=== PATIENT | female | born 1930 | race Caucasian/White ===

== ENCOUNTER 2019-03-04 12:24 | Inpatient (IN) | payer OTHER, MEDICAID ==
[~2019-03-04] VITALS: Ht 154.9 cm; Wt 88.9 kg
--- NOTE | 2019-03-04 12:24 | NUR ---
PATIENT BIBA TO BED 10 AT THIS TIME.
--- NOTE | 2019-03-04 12:25 | NUR ---
DR. BURR AT BEDSIDE EVALUATING
--- NOTE | 2019-03-04 12:29 | NUR ---
PT BIBA TO ED FOR FURTHER EVALUATION OF ABNORMAL LABS, WBC 34.83,NA 126, K 6.1. PT AAO X3 BASELINE, GCS 15. HX.DM, HTN, GERD.
[2019-03-04 12:34] VITALS: BP 84/45
[2019-03-04] MEDS ORDERED: NACL 0.9% 500 ML IV ONE ×2 (12:55→22:05)
--- NOTE | 2019-03-04 12:55 | NUR ---
# 16 FR Holloway catheter inserted utilizing sterile technique. Immediate return of 50ml cloudy urine noted. Bedside drainage bag placed below level of bladder. Urine sample collected and sent to lab. Pt tolerated procedure well.
--- NOTE | 2019-03-04 13:00 | NUR ---
Pt O2 saturation levels fluctuating 93-94% on room air. Oxygen applied at 2 L per minute via NC--- 02 saturation 98% by pulse oximetry at this time.
--- NOTE | 2019-03-04 13:02 | NUR ---
x ray at bedside
--- NOTE | 2019-03-04 13:18 | NUR ---
Pt's dentures and sunglasses sent with family members.
[2019-03-04 13:37] LABS: PROTHROMBIN TIME 9.7 secs (10.8-13.4)
[2019-03-04 13:38] LABS: ALBUMIN 1.9 g/dL (3.4-5.0); ANION GAP 17.8 (8-16); ASPARTATE AMINOTRANSFERASE 97 U/L (15-37); CHLORIDE 95 mmol/L (98-107); GLUCOSE 278 mg/dL (74-106); HEMATOCRIT 25.6 % (36-48); HEMOGLOBIN 8.4 g/dL (12.0-16.0); MEAN CORPUSCULAR HEMOGLOBIN 33 pg (27-31); MEAN CORPUSCULAR HGB CONC 33 g/dL (33-37); MEAN CORPUSCULAR VOLUME 100.6 fL (80-94); PLATELET COUNT (AUTO) 313 K/uL (140-450); POTASSIUM 4.8 mmol/L (3.5-5.1); RED BLOOD CELL COUNT(AUTO) 2.54 MIL/uL (4.20-5.40); RED CELL DISTRIBUTION WIDTH 16.2 % (11.6-13.7); SODIUM SERUM 128 mmol/L (136-145); TOTAL BILIRUBIN 0.4 mg/dL (0.0-1.0); WHITE BLOOD COUNT (AUTO) 23.4 K/uL (4.8-10.8)
[2019-03-04 13:43] LABS: CREATININE 4.5 mg/dL (0.6-1.3); UREA NITROGEN, BLOOD 112 mg/dL (7-18)
[2019-03-04] MEDS ORDERED: NACL 0.9% 250 ML IV ONE ×2 (14:00→17:15)
--- NOTE | 2019-03-04 14:02 | NUR ---
B/P 88/31; NEW ORDER FOR NS [address] BURR.
[2019-03-04 14:03] LABS: APPEARANCE,URINE CLOUDY (CLEAR); BILIRUBIN,URINE NEGATIVE (NEGATIVE); BLOOD, URINE 2+ (NEGATIVE); COLOR,URINE YELLOW (YELLOW); LEUKOCYTE ESTERASE ,URINE 3+ (NEGATIVE); NITRITE, URINE NEGATIVE (NEGATIVE); UGLUCOSE NEGATIVE (NEGATIVE)
[2019-03-04] MEDS ORDERED: LEVOFLOXACIN 500 MG/D5W PREMIX 100 ML IV ONE (14:10)
--- NOTE | 2019-03-04 14:17 | NUR ---
blood pressure 91/40; after NS 25O bolus. New orders pending.
[2019-03-04] MEDS ORDERED: NACL 0.9% 1,000 ML IV ONE (14:20)
[2019-03-04 14:35] LABS: BASOPHILS % (MANUAL) 0 % (0-2); EOSINOPHILS % (MANUAL) 1 % (0-4); LYMPHOCYTES % (MANUAL) 2 % (20-46); MONOCYTES % (MANUAL) 7 % (5-12)
[2019-03-04 14:39] LABS: RBC,URINE 11-20 (MOD) /HPF (0-5); WBC,URINE TOO MANY TO COUNT /HPF (0-5)
[2019-03-04] MEDS: NACL 0.9% 1,000 ML IV SCH ×2 (14:41→23:03)
[2019-03-04] MEDS ORDERED: ONDANSETRON 4 MG/2 ML VIAL IM/IVP PRN (14:45)
[2019-03-04] MEDS ORDERED: MORPHINE SULFATE 2 MG/ML SYR IVP PRN (14:45)
[2019-03-04] MEDS ORDERED: LORazepam 2 MG/ML VIAL IM/IVP PRN (14:45)
[2019-03-04] MEDS ORDERED: DEXTROSE 50% 50 ML SYR IVP PRN (14:45)
[2019-03-04] MEDS ORDERED: DOCUSATE SODIUM 100 MG GELCAP PO PRN (14:45)
[2019-03-04] MEDS ORDERED: ACETAMINOPHEN 325 MG TAB PO PRN (14:45)
[2019-03-04 15:26] LABS: MAGNESIUM 2.4 mg/dL (1.8-2.4); PHOSPHORUS 5.5 mg/dL (2.5-4.9); THYROID STIMULATING HORMONE 0.83 uIU/mL (0.34-3.74)
[2019-03-04] MEDS ORDERED: MEDICATION REC. PHARMACY CONS. 1 EA MISC MC PRN (15:50)
--- NOTE | 2019-03-04 16:18 | NUR ---
Patient will be admitted to care of Dr. Lees. Will be admitted to telemetry floor. Will go to room 127B . Belongings list completed.
[2019-03-04] MEDS: BLOOD GLUCOSE MONITORING 1 DEV DEV FS SCH ×2 (16:30→20:47)
--- NOTE | 2019-03-04 16:35 | NUR ---
IVF infusing as ordered by Dr. Ruffin. Pt continues on 2L of oxygen via NC; O2 sat 96%. Alert and oriented to name, place and event. Denies any pain at this time. Vital signs updated.
--- NOTE | 2019-03-04 17:04 | NUR ---
DR BURR AT BEDSIDE SPEAKING WITH FAMILY.
--- NOTE | 2019-03-04 17:14 | NUR ---
RECTAL TEMP 100.7; DR BURR INFORMED.
[2019-03-04] MEDS ORDERED: FERR325E14 PO (17:19)
[2019-03-04] MEDS ORDERED: TRAM50TA1 PO (17:19)
[2019-03-04] MEDS ORDERED: VITA1TAB44 PO (17:19)
[2019-03-04] MEDS ORDERED: LID5T TP (17:19)
[2019-03-04] MEDS ORDERED: CARV3.12 PO (17:19)
[2019-03-04] MEDS ORDERED: AMLO-272 PO (17:19)
[2019-03-04] MEDS ORDERED: ACET-2619 PO (17:19)
[2019-03-04] MEDS ORDERED: BISA-213 RC (17:19)
[2019-03-04] MEDS ORDERED: DOCU-299 PO (17:19)
[2019-03-04] MEDS ORDERED: ASCO-5 PO (17:19)
[2019-03-04] MEDS ORDERED: HYDR-5122 PO (17:19)
[2019-03-04] MEDS ORDERED: FLEPED RC (17:19)
[2019-03-04] MEDS ORDERED: ATI.5 PO (17:19)
[2019-03-04] MEDS ORDERED: GABA300C PO (17:19)
[2019-03-04] MEDS ORDERED: FAMO-90 PO (17:19)
[2019-03-04] MEDS ORDERED: BENA20TA PO (17:19)
[2019-03-04] MEDS ORDERED: MAGN400S60 PO (17:19)
[2019-03-04] MEDS ORDERED: MAGNESIUM HYDROXIDE 2400 MG/30 ML UDC PO PRN (17:25)
[2019-03-04] MEDS ORDERED: SODIUM PHOSPHATE PEDIATRIC 67.5 ML ENEM RC PRN (17:25)
--- NOTE | 2019-03-04 18:10 | NUR ---
RECEIVED BED SIDE REPORT FROM MED ASST RN. PT LEGALLY BLIND BUT HEARS WELL. IV 18G A AC RUNNING NS AT 126ML/HR. RECEIVED ORDER FROM AND SAID TO GIVE NS 250ML BOLUS WIDE OPEN.MANUFACTURING LABORER SAID LEVAQUIN WAS GIVEN IN THE ER ALONG WITH TYLENOL D/T 100.7 TEMP. HAS COMPRESSION FRACTURES, GAVIN INSERTED TODAY IN THE ER DRAINING LIGHT GREEN 150CC URINE. SKIN INTACT. BP RUNNING LOW, LAST ONE FROM ER WAS 82/37. LAST BP I TOOK WAS 94/47. CONTINUED NS 1000ML AT 100ML/HR PER MD ORDER. GAVE CALCIUM ACETATE CRUSHED THROUGH APPLESAUCE. FAMILY AT BEDSIDE. PT IS DNR AND FAMILY MADE AWARE.
--- NOTE | 2019-03-04 18:11 | NUR ---
Patient will be admitted to care of Dr. Lees. Admited to telemetry floor. Will go to room 127B. Belongings list completed. Report to JAYME Perry.
[2019-03-04] MEDS ORDERED: SODIUM PHOSPHATE 118 ML ENEM RC PRN (18:25)
[2019-03-04] MEDS: INSULIN LISPRO SLIDING SCALE 100 UNITS/ML VIAL SUBQ PRN ×2 (18:40→20:55)
[2019-03-04] MEDS ORDERED: CALCIUM ACETATE 667 MG TAB PO SCH (18:45)
[2019-03-04 19:30] VITALS: BP 97/68
--- NOTE | 2019-03-04 19:30 | NUR ---
RECEIVED BEDSIDE REPORT FROM DAY SHIFT NURSE. PATIENT IS SLEEPING RESPIRATION EVEN UNLABORED ON 02 2L NC. NO DISTRESS NOTED. PATIENT IS LEGALLY BLIND. SKIN IS WARM AND DRY. IV PATENT AND INTACT. GAVIN CATHETER NOTED DRAINING YELLOW URINE. FAMILY AT BEDSIDE. MRSA SCREEN DONE. PLAN OF CARE WAS DISCUSSED. ORIENT PATIENT TO ROOM, STAFF, AND CALL LIGHT. ALL SAFETY MEASURES IN PLACE. BED IS IN LOW POSITION. BED ALARM ON. CALL LIGHT WITHIN REACH. WILL CONTINUE TO MONITOR.
--- NOTE | 2019-03-04 19:45 | NUR ---
ENDORSED PT TO MEDICAID SERVICE COORDINATOR RN. PT IN STABLE CONDITION
[2019-03-04] MEDS ORDERED: LIDOCAINE 5% 1 EA PATCH TP SCH (21:00)
--- NOTE | 2019-03-04 21:00 | NUR ---
CHECKED BLOOD GLUCOSE. PT BLOOD GLUCOSE 230. PRN INSULIN PER SLIDING SCALE ORDER. WILL CONTINUE TO MONITOR
--- NOTE | 2019-03-04 22:00 | NUR ---
PATIENT IV INFILTRATED STARTED A NEW ONE TO RIGHT HAND 24G. NO ACTIVE BLEEDING SEEN. WILL CONTINUE TO MONITOR
--- NOTE | 2019-03-04 22:15 | NUR ---
CHECKED PATIENT BP. PT BP 75/32 RESIDENT AWARE OF THE SITUATION AND ORDER 500ML BOLUS. WILL CONTINUE TO MONITOR
--- NOTE | 2019-03-04 23:05 | NUR ---
RECHECKED PATIENT BP AFTER BOLUS. PT BP 86/33 HR 60 NO DISTRESS NOTED. FAMILY AT BEDSIDE. WILL CONTINUE TO MONITOR.
[2019-03-05] VITALS: BP 93/37
--- NOTE | 2019-03-05 | NUR ---
VITALS WERE TAKEN. PATIENT IS IN STABLE CONDITION. NO DISTRESS NOTED. FAMILY AT BEDSIDE. WILL CONTINUE TO MONITOR.
--- NOTE | 2019-03-05 00:54 | NUR ---
PAIN IS IN PAIN. FLACC 0. ADMINISTERED PRN PAIN MED PER ORDER. WILL CONTINUE TO MONITOR.
--- NOTE | 2019-03-05 02:54 | NUR ---
PATIENT VERBALIZED HEADACHE PAIN 04/08. ADMINISTERED 1MG OF MORPHINE ONCE PER DR. ALONZO (RESIDENT) ORDER. PATIENT BP 122/90 HR 80 RR 20. WILL CONTINUE TO MONITOR.
[2019-03-05] MEDS ORDERED: MORPHINE SULFATE 2 MG/ML SYR IVP SCH (03:00)
[2019-03-05 04:00] VITALS: BP 104/46
--- NOTE | 2019-03-05 04:00 | NUR ---
VITALS WERE TAKEN. PATIENT COMPLAINED OF NECK PAIN 7/. PRN PAIN MED ADMINISTER PER ORDER. WILL CONTINUE TO MONITOR.
[2019-03-05] MEDS: MORPHINE SULFATE 2 MG/ML SYR IVP PRN (04:29)
[2019-03-05] MEDS: BLOOD GLUCOSE MONITORING 1 DEV DEV FS SCH ×4 (06:06→20:29)
[2019-03-05 06:08] LABS: CHOL/HDL RATIO 6.1 (1-4.5); PHOSPHORUS 4.3 mg/dL (2.5-4.9)
[2019-03-05] MEDS: INSULIN LISPRO SLIDING SCALE 100 UNITS/ML VIAL SUBQ PRN ×4 (06:08→20:36)
[2019-03-05 06:23] LABS: ANION GAP 19.8 (8-16); CARBON DIOXIDE 15.3 mmol/L (21-32); CHLORIDE 99 mmol/L (98-107); CREATININE 2.9 mg/dL (0.6-1.3); GLUCOSE 233 mg/dL (74-106); POTASSIUM 5.1 mmol/L (3.5-5.1); SODIUM SERUM 129 mmol/L (136-145)
[2019-03-05 06:27] LABS: UREA NITROGEN, BLOOD 96 mg/dL (7-18)
[2019-03-05 06:44] LABS: HEMATOCRIT 22.9 % (36-48); HEMOGLOBIN 7.5 g/dL (12.0-16.0); MEAN CORPUSCULAR HEMOGLOBIN 33 pg (27-31); MEAN CORPUSCULAR HGB CONC 33 g/dL (33-37); MEAN CORPUSCULAR VOLUME 101.4 fL (80-94); PLATELET COUNT (AUTO) 299 K/uL (140-450); RED BLOOD CELL COUNT(AUTO) 2.26 MIL/uL (4.20-5.40); RED CELL DISTRIBUTION WIDTH 16.3 % (11.6-13.7)
--- NOTE | 2019-03-05 07:26 | NUR ---
REPORT RECEIVED FROM FILTERING MACHINE TENDER NURSE, PT RESTING QUIETLY IN NO ACUTE DISTRESS, RESP EVEN UNLABORED, SKIN WARM DRY COLOR WNL,POC REVIEWED, DAUGHTER IN LAW AND SON AT BEDSIDE, ALL SAFETY MEASURES IN PLACE, NO IMMEDIATE NEEDS AT THIS TIME.
--- NOTE | 2019-03-05 07:27 | NUR ---
ENDORSED PATIENT TO DAY SHIFT NURSE FOR CONTINUITY OF CARE.
[2019-03-05 08:00] VITALS: BP 108/52
--- NOTE | 2019-03-05 08:01 | NUR ---
PATIENT HAS BEEN SCREENED AND CATEGORIZED HIGH NUTRITION RISK. PATIENT WILL BE SEEN WITHIN 1-2 DAYS OF ADMISSION. 03/05/19-03/06/[address]
[2019-03-05] MEDS: VIT-B COMP/VIT-C/FOLIC ACID 1 TAB PO SCH (08:03)
[2019-03-05] MEDS: FAMOTIDINE 20 MG TAB PO SCH (08:03)
[2019-03-05] MEDS: LORazepam 2 MG/ML VIAL IM/IVP PRN (08:03)
[2019-03-05] MEDS: ASCORBIC ACID 500 MG TAB PO SCH (08:03)
[2019-03-05] MEDS: GABAPENTIN 100 MG CAP PO SCH (08:04)
[2019-03-05] MEDS: FERROUS SULFATE 325 MG TABEC PO SCH (08:04)
[2019-03-05] MEDS: DOCUSATE SODIUM 100 MG GELCAP PO SCH (08:05)
[2019-03-05] MEDS: LIDOCAINE 5% 1 EA PATCH TP SCH (08:21)
--- NOTE | 2019-03-05 08:22 | NUR ---
ATIVAN GIVEN FOR C/O ANXIETY, PT DENIES PAIN, AM MEDS GIVEN 1 PILL TOLERATED, REST CRUSHED AND GIVEN WITH PUDDING, CLARISSA WELL, DAUGHTER IN LAW AT BEDSIDE ASSISTING WITH BREAKFAST, SON ALSO AT BEDSIDE, PT REFUSES LIDOCAIN PATCH.
[2019-03-05 08:25] LABS: LYMPHOCYTES % (MANUAL) 2 % (20-46); MONOCYTES % (MANUAL) 2 % (5-12)
[2019-03-05] MEDS ORDERED: GABAPENTIN 300 MG CAP PO SCH (09:00)
--- NOTE | 2019-03-05 09:00 | NUR ---
S.T. BEDSIDE SWALLOW EVAL COMPLETED Pt presents w/ mild oral dysphagia c/b difficultying procuring and managing oral bolus. Pt c/o xerostomia and attributes oral difficulty to that. No overt s/s aspriation. Pt's family c/o weakness, and requests that food texture be downgraded. Recommend: 1) Downgrade diet texture to mechanical soft ground, thin liquids ok. 2) P.O. meds as tolerated. 3) Advance diet slowly as pt's strength/endurance improves. D/w pt, [id number] at bedside and RN Tia. No further tx indicated at this time. DC to [facility]. TIME [id number]
--- NOTE | 2019-03-05 09:20 | NUR ---
PT NOW SLEEPING QUIETLY, APPEARS COMFORTABLE, DAUGHTER IN LAW AT BEDSIDE.
--- NOTE | 2019-03-05 09:33 | NUR ---
JACOBO FROM [facility] ON THE PHONE, SPOKE WITH DAUGHTER IN LAW TO ARRANGE MEETING.
--- NOTE | 2019-03-05 10:15 | NUR ---
[facility] AND DR TUBBS AT BEDSIDE WITH FAMILY AND PATIENT.
[2019-03-05] MEDS ORDERED: SODIUM FERRIC GLUCONATE 125 MG in NACL 0.9% 100 ML IV SCH (11:00)
--- NOTE | 2019-03-05 11:05 | NUR ---
GAVIN CARE DONE, LINEN AND GOWN CHANGED, BED BATH GIVEN.
[2019-03-05] MEDS: NACL 0.9% 1,000 ML IV SCH ×2 (11:33→21:10)
[2019-03-05 12:00] VITALS: BP 112/68
--- NOTE | 2019-03-05 14:25 | NUR ---
DR GLEASON AT BEDSIDE
--- NOTE | 2019-03-05 15:01 | NUR ---
03/05/19 RD INITIAL ASSESSMENT COMPLETED PLEASE REFER TO NUTRITION ASSESSMENT UNDER CARE ACTIVITY FOR ESTIMATED NUTRITIONAL NEEDS. 1. CONTINUE CCHO 60 GM AND RENAL MECH SOFT DIET TOLERATED 2. CONTINUE GLUCERNA BID 3. ENCOURAGE INCREASING PO INTAKE 4. MECHANICAL SOFT NUTRITION THERAPY EDUCATION WAS PROVIDED TO PATIENT�S FAMILY 5. RD TO FOLLOW-UP 2-3 DAYS, HIGH RISK LINDA MEJIA, RD
[2019-03-05 15:07] LABS: FOLIC ACID > 20.00 ng/mL (>3.0)
--- NOTE | 2019-03-05 15:39 | NUR ---
MULTIPLE ATTEMPTS SINCE THIS MORNING TO TRY AND SEE PATIENT FOR [facility]AD[facility] BUT PT EITHER HAD MD VISITING, SWALLOW MIHAELAAL OR US AT BEDSIDE. IN THE AFTERNOON CHRISTOPHER GRANDDAUGHTER AT BEDSIDE SAID "SHE IS KNOCKED OUT EVEN WHEN YOU COME BACK IT MAY BE HARD TO WAKE HER." CHRISTOPHER GAVE HISTORY PT HAD MECHANICAL FALL AT HOME SUSTAINED LT RIB FRACTURE ABOUT A MONTH AGO, WAS IN [facility] BUT FROM HER KNOWLEDGE HAS BEEN VERY WEAK AND MOSTLY BED BOUND SINCE SNF ADMISSION. PER FAMILY REQUEST Grace AMADOR DEFERRED TO TOMORROW.
[2019-03-05 16:00] VITALS: BP 115/69
--- NOTE | 2019-03-05 16:02 | NUR ---
DR TUBBS AT BEDSIDE TO DISCUSS PLAN OF CARE WITH FAMILY.
[2019-03-05 17:54] LABS: FERRITIN 486 ng/mL (15 - 150); TRANSFERRIN 116 mg/dL (200 - 370)
--- NOTE | 2019-03-05 18:51 | NUR ---
PT RESTING QUIETLY IN BED IN NO ACUTE DISTRESS, FAMILY AROUND BEDSIDE, NO NEEDS AT THIS TIME, IVF INFUSING WELL, SITE WNL, WILL CONTINUE TO MONTIOR.
--- NOTE | 2019-03-05 19:22 | NUR ---
REPORT GIVEN TO VINYL TOP INSTALLER NURSE, PT IN STABLE CONDITION.
--- NOTE | 2019-03-05 19:23 | NUR ---
RECEIVED PT FROM CHERYL RN PT AOX1, ON 11 01 LTS VIA NC IV ON RT HAND , INFUSING WELL ON TELEMETRY SR, RELATIVES AT BED SIDE INITIAL ASSESSMENT DONE
[2019-03-05 20:00] VITALS: BP 112/46
--- NOTE | 2019-03-05 21:00 | NUR ---
BLOOD SUGAR TEST 159 WAS COVERAGE WITH 2 UNITS SUBQ HUMALOG FOLLOW PROTOCOL. PT REPOSITIONED Q2H, FAMILY AT BED SIDE PACHECO VERBALIZED NEEDED
[2019-03-06] VITALS: BP 108/46
--- NOTE | 2019-03-06 | NUR ---
PT AWAKE, VERBALIZED WANT WATER DRINKING E, PT ON TELMETRY SR REPOSITIONED Q2HAND SHE IS ASSISTED
[2019-03-06] MEDS: HYDROcodone/APAP 5/325 MG 1 TAB TAB PO PRN ×2 (01:48→09:12)
--- NOTE | 2019-03-06 03:00 | NUR ---
PT REPOSITONED X8BHCCY OF GAVIN CATH, DRAINING WELL YELLOW URINE ON TELMETRYK NO
[2019-03-06 04:00] VITALS: BP 101/37
--- NOTE | 2019-03-06 05:00 | NUR ---
SPONGE BATH GIVEN LINEN CHANGED ,REPOSITIONED GAVIN CATH DRAINING WELL YELLOW URINE, ON TELMETRY SR PT VERBALIZED NEEDED
[2019-03-06] MEDS: BLOOD GLUCOSE MONITORING 1 DEV DEV FS SCH ×4 (06:02→21:29)
[2019-03-06] MEDS: INSULIN LISPRO SLIDING SCALE 100 UNITS/ML VIAL SUBQ PRN ×4 (06:05→21:17)
--- NOTE | 2019-03-06 06:42 | NUR ---
BLOOD SUGAR TEST 205 COVERAGE WITH 4 UNITS SUBQ HUMALOG FOLLOWING PROTOCOL
--- NOTE | 2019-03-06 06:43 | NUR ---
PT WILL BE ENDORSED TO DAY SHIFT NURSE FOR CONTINUITY OF CARE PT ON TELMETRY SR NOT DISTRESS NOTED AT THIS TIME.
--- NOTE | 2019-03-06 07:18 | NUR ---
RECEIVED REPORT FROM EMPLOYMENT EDUCATIONAL COORD NURSE. PT IS BLIND, AAOX2 AND COOPERATIVE. LAYING IN BED. RESPIRATIONS EVEN AND UNLABORED ON O2 2L VIA N/C. ABDOMEN SOFT AND FLAT. F/C IN PLACE, PATENT, INTACT AND CLEAN. IV SITE ON RT HAND 24 GA RUNNING ON IVF PER ORDER, I/C/D. NO C/O PAIN AT THIS TIME. PT SKIN COLOR IS APPRIORIATE TO ETHNICITY, SKIN IS INTACT. PT ON FALL PRECAUTIONS, SAFETY MEASURES IN PLACE, BED IN LOW POSITION, CALL LIGHT WITHIN REACH. WILL CONTINUE TO MONITOR.
--- NOTE | 2019-03-06 07:33 | NUR ---
ENDORSED PT TO DAY SHIFT NURSE [place]. PT IS STABLE AT THIS TIME.
--- NOTE | 2019-03-06 07:34 | NUR ---
RECEIVED REPORT FROM DAY SHIFT NURSE AT BEDSIDE FOR CONTINUITY OF CARE. PT IS BLIND, AAOX2 AND COOPERATIVE. LAYING IN BED. RESPIRATIONS EVEN AND UNLABORED ON O2 2L VIA N/C. ABDOMEN SOFT AND FLAT. F/C IN PLACE, PATENT, INTACT AND CLEAN, WITH YELLOW CLOUDY URINE RUNNING TO GRAVITY. IV SITE ON RT HAND 24 GA RUNNING ON IVF WELL. NO C/O PAIN AT THIS TIME. PT SKIN COLOR IS APPROPRIATE TO ETHNICITY, SKIN IS INTACT. UPDATED BOARD. DANIELLE STACK FED PATIENT BREAKFAST, PATIENT ATE 20% OF BREAKFAST. NOW RESTING IN BED. PT ON FALL PRECAUTIONS, SAFETY MEASURES IN PLACE, BED IN LOW POSITION, CALL LIGHT WITHIN REACH. WILL CONTINUE TO MONITOR.
[2019-03-06 08:00] VITALS: BP 107/39
[2019-03-06] MEDS: NACL 0.9% 1,000 ML IV SCH ×2 (08:45→13:03)
[2019-03-06] MEDS: LIDOCAINE 5% 1 EA PATCH TP SCH (09:13)
[2019-03-06] MEDS: GABAPENTIN 100 MG CAP PO SCH (09:15)
[2019-03-06] MEDS: FERROUS SULFATE 325 MG TABEC PO SCH (09:15)
[2019-03-06] MEDS: DOCUSATE SODIUM 100 MG GELCAP PO SCH (09:15)
[2019-03-06] MEDS: FAMOTIDINE 20 MG TAB PO SCH (09:18)
[2019-03-06] MEDS: ASCORBIC ACID 500 MG TAB PO SCH (09:18)
[2019-03-06] MEDS: VIT-B COMP/VIT-C/FOLIC ACID 1 TAB PO SCH (09:19)
[2019-03-06 09:42] LABS: BASOPHILS % (AUTO) 0.2 % (0.0-2.0); EOSINOPHILS # (AUTO) 0.2 K/uL (0-0.4); EOSINOPHILS % (AUTO) 1.4 % (0.0-4.0); HEMATOCRIT 25.6 % (36-48); HEMOGLOBIN 8.2 g/dL (12.0-16.0); LYMPHOCYTES # (AUTO) 0.5 K/uL (2.5-16.5); LYMPHOCYTES % (AUTO) 3.5 % (20.5-51.1); MEAN CORPUSCULAR HEMOGLOBIN 33 pg (27-31); MEAN CORPUSCULAR HGB CONC 32 g/dL (33-37); MEAN CORPUSCULAR VOLUME 101.3 fL (80-94); MONOCYTES # (AUTO) 1.6 K/uL (0.8-1.0); MONOCYTES % (AUTO) 10.6 % (1.7-9.3); NEUTROPHILS # (AUTO) 13.1 K/uL (1.8-7.7); NEUTROPHILS % (AUTO) 84.3 % (42.2-75.2); PLATELET COUNT (AUTO) 331 K/uL (140-450); RED BLOOD CELL COUNT(AUTO) 2.52 MIL/uL (4.20-5.40); RED CELL DISTRIBUTION WIDTH 16.4 % (11.6-13.7); WHITE BLOOD COUNT (AUTO) 15.5 K/uL (4.8-10.8)
[2019-03-06 09:54] LABS: MAGNESIUM 2.1 mg/dL (1.8-2.4); PHOSPHORUS 3.6 mg/dL (2.5-4.9)
[2019-03-06 10:04] LABS: ANION GAP 15.1 (8-16); CARBON DIOXIDE 18.9 mmol/L (21-32); CHLORIDE 103 mmol/L (98-107); CREATININE 1.9 mg/dL (0.6-1.3); GLUCOSE 230 mg/dL (74-106); SODIUM SERUM 133 mmol/L (136-145)
[2019-03-06 10:06] LABS: UREA NITROGEN, BLOOD 76 mg/dL (7-18)
--- NOTE | 2019-03-06 10:10 | NUR ---
RECEIVED CALL FROM LAB ABOUT BUN 67, INFORMED DR. ROGERS. PATIENT'S SON KIMBERLY AT BEDSIDE. PATIENT RESTING IN BED COMFORTABLY, NO SIGN OF PAIN OR DISTRESS AT THIS TIME. SAFETY PRECAUTIONS IN PLACE, CALL LIGHT WITHIN REACH, WILL CONTINUE TO MONITOR PATIENT.
--- NOTE | 2019-03-06 10:25 | NUR ---
RECEIVED CALL FROM BASIM VALIENTE FROM [facility]. DISCUSSED PATIENT'S STATUS AND POSSIBLE DC BACK TO [facility] ON Saturday03/08/19. SHE VERBALIZED UNDERSTANDING. WILL CONTINUE TO MONITOR PATIENT.
--- NOTE | 2019-03-06 11:10 | NUR ---
EDISON, DAUGHTER IN LAW, CALLED, SHE STATED THAT PER AGREEMENT WITH JACOBO FROM [facility], PATIENT WAS TO BE DC HOME TODAY WITH HOSPICE. INFORM EDISON OF DOCTOR'S ORDERS. SHE STATED THAT SHE WILL IN AT [phone]. INFORMED DR[address] ROGERS SO AN AGREEMENT CAN BE MADE ABOUT PLAN FOR PATIENT. WILL CONTINUE TO MONITOR PATIENT.
--- NOTE | 2019-03-06 11:49 | NUR ---
Per charge nurse Pooja, and Dr Stahl that will speak to the family regarding transfer to SNF.
--- NOTE | 2019-03-06 12:06 | NUR ---
DR. ROGERS IN TO SEE THE PATIENT, [facility] LOCKER ROOM ATTENDANT ALSO PRESENT. DAUGHTER IN LAW EDISON AND GRANDDAUGHTER JERAMIE AT BEDSIDE. PER DISCUSSION, PATIENT WILL BE DISCHARGED SATURDAY OR SATURDAY PENDING URINE C&S. DR. ROGERS STATED THAT SHE WILL CALL JACOBO FROM [facility] TO INFORM THEM OF PATIENT STAY IN HOSPITAL. WILL CONTINUE TO MONITOR PATIENT.
--- NOTE | 2019-03-06 12:24 | NUR ---
Dr Stahl met with the daughter and patient will be transfer to home on Saturday with [facility] and Nadiya arranged all equipment to be deliver to the house at 3pm today. Dr Stahl will communicate with Nadiya
--- NOTE | 2019-03-06 12:54 | NUR ---
P.T. NOTES P.T. PERRY COMPLETED, REFER TO PERRY FOR DETAILS. Addendum: 03/06/19 at 1254 by Yi Valenzuela PT Amended: Links added.
--- NOTE | 2019-03-06 14:05 | NUR ---
PATIENT RESTING IN BED WITH EYES CLOSED, RESPIRATIONS EVEN AND UNLABORED ON 2L O2 VIA NC. NO DISTRESS OR SOB NOTED AT THIS TIME. SAFETY PRECAUTION IN PLACE, CALL LIGHT WITHIN REACH, WILL CONTINUE TO MONITOR PATIENT.
[2019-03-06 16:00] VITALS: BP 123/49
--- NOTE | 2019-03-06 16:30 | NUR ---
RECEIVED CRITICAL ABOUT PATIENT'S URINE CULTURE. INFORMED DR. NEELY, CONTACT ISOLATION ORDER IN. FAMILY INFORMED. CONTACT PRECAUTION EDUCATION GIVEN TO PATIENT'S FAMILY. WILL CONTINUE TO MONITOR PATIENT.
--- NOTE | 2019-03-06 17:30 | NUR ---
FLEET ENEMA GIVEN. PATIENT TOLERATED IT. FAMILY AT BEDSIDE. SAFETY AND ISOLATION PRECAUTIONS IN PLACE, CALL LIGHT VALORIE KEE, WILL CONTINUE TO MONITOR PATIENT.
--- NOTE | 2019-03-06 17:40 | NUR ---
PATIENT HAD FORMED BOWEL MOVEMENT. OCCULT SAMPLE TAKEN. WILL CONTINUE TO MONITOR PATIENT.
[2019-03-06] MEDS ORDERED: LEVOFLOXACIN 500 MG/D5W PREMIX 100 ML IV SCH (18:00)
--- NOTE | 2019-03-06 19:15 | NUR ---
REPORT GIVEN TO NUTRITIONAL SERVICES HOST NURSE AT BEDSIDE FOR CONTINUITY OF CARE. PATIENT IN STABLE CONDITION.
--- NOTE | 2019-03-06 19:16 | NUR ---
RECEIVED REPORT FROM DAY SHIFT NURSE. AAOX2. PT IS LEGALLY BLIND. INTRODUCED MYSELF TO PT. DENIES PAIN OR SOB. ON O2 AT 2L/MIN VIA NC. SKIN INTACT. GAVIN CATH IN PLACE, DRAINING CLEAR YELLOW URINE. IV TO RIGHT HAND #24G, PATENT AND INTACT. SAFETY PRECAUTION IN PLACE. CALL LIGHT WITHIN REACH.
[2019-03-06 20:00] VITALS: BP 134/54
--- NOTE | 2019-03-06 21:30 | NUR ---
PT WAS CLEANSED AND CHANGED. PHARMACEUTICAL PLANT OPERATOR FEEDING THE PT AT THIS TIME. ALL NEEDS ATTENDED AT THIS TIME. CALL LIGHT WITHIN REACH.
--- NOTE | 2019-03-06 22:10 | NUR ---
RECEIVED REPORT FROM DAY SHIFT NURSE. AAOX2. PT IS LEGALLY BLIND. INTRODUCED MYSELF TO PT. DENIES PAIN OR SOB. ON O2 AT 2L/MIN VIA NC. SKIN INTACT. GAVIN CATH IN PLACE, DRAINING CLEAR YELLOW URINE. IV TO RIGHT HAND #24G, PATENT AND INTACT. SAFETY PRECAUTION IN PLACE. CALL LIGHT WITHIN REACH. Addendum: 03/06/19 at 2215 by Simon Carmona RN WRONG TIME.
--- NOTE | 2019-03-06 22:30 | NUR ---
PT'S FAMILY IN THE ROOM TALKING TO THE PT. NO C/O PAIN. NO REPS DISTRESS NOTED. PT NEEDS ATTENDED AT THIS TIME.
[2019-03-07] VITALS: BP 139/52
--- NOTE | 2019-03-07 01:00 | NUR ---
PT SLEEPING BUT EASILY AROUSABLE. NO S/S OF PAIN OR SOB. PT KEPT DRY AND COMFORTABLE.
--- NOTE | 2019-03-07 02:25 | NUR ---
PT SLEEPING. RESP EVEN AND UNLABORED. NO S/S OF PAIN. IVF INFUSING WELL. CALL LIGHT WITHIN REACH.
[2019-03-07] MEDS: NACL 0.9% 1,000 ML IV SCH ×3 (03:10→23:10)
[2019-03-07] MEDS: HYDROcodone/APAP 5/325 MG 1 TAB TAB PO PRN ×3 (03:53→13:15)
--- NOTE | 2019-03-07 03:55 | NUR ---
PT C/O GENERALIZED PAIN 6/10 SCALE. NORCO 5/325 MG TAB GIVEN. PT TOLERATED WELL. PT TURNED AND REPOSITIONED.
--- NOTE | 2019-03-07 05:00 | NUR ---
PT SLEEPING. NO S/S OF PAIN AT THIS TIME. NO S/S OF RESP DISTRESS NOTED. PT KEPT COMFORTABLE.
[2019-03-07] MEDS: INSULIN LISPRO SLIDING SCALE 100 UNITS/ML VIAL SUBQ PRN ×4 (06:22→20:41)
[2019-03-07] MEDS: BLOOD GLUCOSE MONITORING 1 DEV DEV FS SCH ×4 (06:26→20:34)
--- NOTE | 2019-03-07 06:30 | NUR ---
PT'S BLOOD SUGAR 197. 2 UNITS OF HUMALOG GIVEN SUBQ. PT TOLERATED WELL. PT DENIES PAIN OR SOB AT THIS TIME.
--- NOTE | 2019-03-07 07:17 | NUR ---
ENDORSED PT TO DAY SHIFT NURSE. PT IN STABLE CONDITION.
--- NOTE | 2019-03-07 07:18 | NUR ---
RECEIVED REPORT FROM PHARMACY TECHNICIAN INFUSION NURSE AT BEDSIDE FOR CONTINUITY OF CARE. PT IS BLIND, AAOX2 AND COOPERATIVE. LAYING IN BED. RESPIRATIONS EVEN AND UNLABORED ON O2 2L VIA N/C. ABDOMEN SOFT AND FLAT. F/C IN PLACE, PATENT, INTACT AND CLEAN, WITH YELLOW URINE RUNNING TO GRAVITY. IV SITE ON RT HAND 24 GA RUNNING ON IVF WELL. NO C/O PAIN AT THIS TIME. UPDATED BOARD. UPDATED PATIENT WITH PLAN OF CARE, SHE VERBALIZED UNDERSTANDING. SAFETY AND ISOLATION PRECAUTIONS IN PLACE, BED IN LOW POSITION, CALL LIGHT WITHIN REACH. WILL CONTINUE TO MONITOR.
[2019-03-07 08:00] VITALS: BP 130/71
[2019-03-07] MEDS: FERROUS SULFATE 325 MG TABEC PO SCH (09:20)
[2019-03-07] MEDS: DOCUSATE SODIUM 100 MG GELCAP PO SCH (09:20)
[2019-03-07] MEDS: VIT-B COMP/VIT-C/FOLIC ACID 1 TAB PO SCH (09:20)
[2019-03-07] MEDS: ASCORBIC ACID 500 MG TAB PO SCH (09:20)
[2019-03-07] MEDS: FAMOTIDINE 20 MG TAB PO SCH (09:20)
[2019-03-07] MEDS: GABAPENTIN 100 MG CAP PO SCH (09:20)
[2019-03-07] MEDS: LIDOCAINE 5% 1 EA PATCH TP SCH (09:22)
--- NOTE | 2019-03-07 09:22 | NUR ---
PT C/O OF GENERALIZED BODY PAIN, REQUESTED FOR PRN NORCO, NORCO GIVEN. ORDERED MEDICATIONS GIVEN. PATIENT TOLERATED THEM. NO COMPLAINTS AT THIS TIME, NO DISTRESS OR SOB NOTED. SAFETY AND ISOLATION PRECAUTIONS IN PLACE, BED IN LOW POSITION, CALL LIGHT WITHIN REACH. WILL CONTINUE TO MONITOR.
--- NOTE | 2019-03-07 12:21 | NUR ---
BLOOD SUGAR 200, COVERAGE GIVEN. GRANDDAUGHTER AT BEDSIDE FEEDING PATIENT LUNCH. SAFETY AND ISOLATION PRECAUTION IN PLACE, CALL LIGHT WITHIN REACH, WILL CONTINUE TO MONITOR PATIENT.
[2019-03-07] MEDS ORDERED: BISACODYL 5 MG TABEC PO PRN (13:00)
--- NOTE | 2019-03-07 13:15 | NUR ---
PATIENT C/O GENERALIZED PAIN, REQUESTED FOR PRN NORCO. PRN PAIN MEDICATION GIVEN. PATIENT TOLERATED IT. SAFETY AND ISOLATION PRECAUTION IN PLACE, CALL LIGHT WITHIN REACH, WILL CONTINUE TO MONITOR PATIENT.
--- NOTE | 2019-03-07 13:45 | NUR ---
FAMILY IN ROOM, UPDATED THEM WITH PATIENT'S STATUS. NO COMPLAINTS AT THIS TIME. PATIENT SLEEPING COMFORTABLY. REITERATED ABOUT CONTACT PRECAUTIONS. THEY VERBALIZED UNDERSTANDING. WILL CONTINUE TO MONITOR PATIENT.
--- NOTE | 2019-03-07 14:44 | NUR ---
PATIENT TURNED AND REPOSITIONED FOR COMFORT AND TO OFFLOAD PRESSURE AREAS. PT REQUESTED MEDICATION FOR CONSTIPATION, PRN DULCOLAX GIVEN. PATIENT TOLERATED IT WELL. NO COMPLAINTS AT THIS TIME, PATIENT RESTING COMFORTABLY IN BED, SAFETY AND ISOLATION PRECAUTIONS IN PLACE, CALL LIGHT WITHIN REACH, WILL CONTINUE TO MONITOR PATIENT.
[2019-03-07 16:00] VITALS: BP 139/44
--- NOTE | 2019-03-07 16:05 | NUR ---
PATIENT HAD SOFT SMALL BM. PATIENT CLEANED AND REPOSITIONED FOR COMFORT. WILL CONTINUE TO MONITOR PATIENT.
--- NOTE | 2019-03-07 16:50 | NUR ---
PT C/O NAUSEA, PRN ZOFRAN GIVEN. PATIENT TOLERATED IT. ORDERED IVBP GIVEN. WILL ASSESS FOR S/S OF REACTION. PATIENT CURRENTLY TOLERATING IT. NO COMPLAINTS AT THIS TIME. SAFETY AND ISOLATION PRECAUTIONS IN PLACE, CALL LIGHT WITHIN REACH, WILL CONTINUE TO MONITOR PATIENT.
[2019-03-07] MEDS ORDERED: CIPROFLOXACIN IV SCH (17:00)
[2019-03-07] MEDS ORDERED: DEXTROSE IV SCH (17:00)
--- NOTE | 2019-03-07 17:35 | NUR ---
BLOOD SUGAR 171, COVERAGE GIVEN. PATIENT TOLERATING IT. PATIENT NOW SITTING UP IN BED BEING FED DINNER BY DANIELLE STACK. NO COMPLAINTS AT THIS TIME. SAFETY AND ISOLATION PRECAUTION IN PLACE, CALL LIGHT WITHIN REACH, WILL CONTINUE TO MONITOR PATIENT.
--- NOTE | 2019-03-07 19:15 | NUR ---
REPORT GIVEN TO CERTIFIED NURSE MIDWIFE NURSE AT BEDSIDE FOR CONTINUITY OF CARE. PATIENT IN STABLE CONDITION.
--- NOTE | 2019-03-07 19:26 | NUR ---
RECEIVED REPORT FROM DAY SHIFT NURSE AT BEDSIDE FOR CONTINUITY OF CARE. PT IS BLIND, AAOX2 AND COOPERATIVE. RESPIRATIONS EVEN AND UNLABORED ON O2 2L VIA N/C. ABDOMEN SOFT AND FLAT. F/C IN PLACE, PATENT, INTACT AND CLEAN, WITH YELLOW URINE RUNNING TO GRAVITY. IV SITE ON RT HAND 24 GA RUNNING ON IVF WELL. NO C/O PAIN AT THIS TIME. UPDATED BOARD. UPDATED PATIENT WITH PLAN OF CARE, SHE VERBALIZED UNDERSTANDING. SAFETY AND CONTACT ISOLATION PRECAUTIONS IN PLACE, BED IN LOW POSITION, CALL LIGHT WITHIN REACH. WILL CONTINUE TO MONITOR.
--- NOTE | 2019-03-07 20:34 | NUR ---
BS CHECKED, 195. WILL ADMINISTER INSULIN ORDERED.
--- NOTE | 2019-03-07 20:41 | NUR ---
2 UNITS OF INSULIN GIVEN MD ORDERED. PT TOLERATED WELL. PT C/O COLD. TURN AC OFF AND COVER WITH BLANKET.
[2019-03-07] MEDS: LORazepam 2 MG/ML VIAL IM/IVP PRN (21:53)
--- NOTE | 2019-03-07 21:53 | NUR ---
PT C/O ANXIETY, GIVEN ATIVAN ORDERED. PT TOLERATED WELL. WILL CONTINUE TO MONITOR.
[2019-03-08] VITALS: BP 154/51
--- NOTE | 2019-03-08 00:15 | NUR ---
VS CHECKED. PT IN STABLE CONDITION. BED IN LOW POSITION. CALL LIGHT WITHIN REACH. WILL CONTINUE TO MONITOR.
--- NOTE | 2019-03-08 02:20 | NUR ---
PT SLEEPING IN BED COMFORTABLY. NO S/S OF ACUTE DISTRESS. RESP EVEN AND UNLABORED. WILL CONTINUE TO MONITOR.
[2019-03-08] MEDS: MORPHINE SULFATE 2 MG/ML SYR IVP PRN (03:08)
--- NOTE | 2019-03-08 03:08 | NUR ---
PT C/O BACK PAIN 07/09. GIVEN MORPHINE ORDERED. PT TOLERATED WELL. WILL CONTINUE TO MONITOR.
--- NOTE | 2019-03-08 03:25 | NUR ---
PT CONFUSED AND THINK SHE DID NOT GET MEDICATION FOR PAIN. REORIENT PT BUT STILL CONFUSED.
--- NOTE | 2019-03-08 04:03 | NUR ---
PT SLEEPING COMFORTABLY. NO ACUTE DISTRESS NOTED.
[2019-03-08] MEDS: HYDROcodone/APAP 5/325 MG 1 TAB TAB PO PRN (05:19)
--- NOTE | 2019-03-08 05:19 | NUR ---
PT C/O PAIN 03/09, GIVEN NORCO DRBlayne ORDERED. PT TOLERATED WELL. WILL CONTINUE TO MONITOR.
[2019-03-08] MEDS: BLOOD GLUCOSE MONITORING 1 DEV DEV FS SCH (05:28)
--- NOTE | 2019-03-08 05:56 | NUR ---
PT SLEEPING IN BED COMFORTABLY. NO ACUTE DISTRESS NOTED. BED IN LOW POSITION. WILL CONTINUE MONITOR.
[2019-03-08] MEDS: INSULIN LISPRO SLIDING SCALE 100 UNITS/ML VIAL SUBQ PRN (06:12)
--- NOTE | 2019-03-08 07:29 | NUR ---
ENDORSED PT TO DAY SHIFT NURSECHERYL. PT IN STABLE CONDITION.
--- NOTE | 2019-03-08 07:30 | NUR ---
REPORT RECEIVED FROM PROVINCE ARCHIVIST NURSE, PT SLEEPING QUIETLY IN NAD, RESP EVEN UNLABORED, SKIN WARM DRY COLOR WNL, PT AROUSES EASILY, OX1-2. DENIES PAIN OR DISCOMFORT, POC REVIEWED, DENIES ANY IMMEDIATE NEEDS, WILL CONTINUE TO MONITOR.
[2019-03-08 08:00] VITALS: BP 133/52
[2019-03-08 08:09] LABS: BASOPHILS # (AUTO) 0.1 K/uL (0.00-0.22); BASOPHILS % (AUTO) 0.6 % (0.0-2.0); EOSINOPHILS # (AUTO) 0.1 K/uL (0-0.4); EOSINOPHILS % (AUTO) 1.5 % (0.0-4.0); HEMATOCRIT 25.1 % (36-48); HEMOGLOBIN 8.3 g/dL (12.0-16.0); LYMPHOCYTES # (AUTO) 0.6 K/uL (2.5-16.5); LYMPHOCYTES % (AUTO) 6.9 % (20.5-51.1); MEAN CORPUSCULAR HEMOGLOBIN 33 pg (27-31); MEAN CORPUSCULAR HGB CONC 33 g/dL (33-37); MEAN CORPUSCULAR VOLUME 100.9 fL (80-94); MONOCYTES # (AUTO) 0.9 K/uL (0.8-1.0); MONOCYTES % (AUTO) 10.1 % (1.7-9.3); NEUTROPHILS # (AUTO) 7.3 K/uL (1.8-7.7); NEUTROPHILS % (AUTO) 80.9 % (42.2-75.2); PLATELET COUNT (AUTO) 353 K/uL (140-450); RED BLOOD CELL COUNT(AUTO) 2.48 MIL/uL (4.20-5.40); RED CELL DISTRIBUTION WIDTH 16.1 % (11.6-13.7); WHITE BLOOD COUNT (AUTO) 9.1 K/uL (4.8-10.8)
[2019-03-08 08:29] LABS: ANION GAP 14.5 (8-16); CARBON DIOXIDE 19.3 mmol/L (21-32); CHLORIDE 107 mmol/L (98-107); GLUCOSE 182 mg/dL (74-106); POTASSIUM 3.8 mmol/L (3.5-5.1); SODIUM SERUM 137 mmol/L (136-145); UREA NITROGEN, BLOOD 34 mg/dL (7-18)
[2019-03-08 08:40] LABS: MAGNESIUM 1.4 mg/dL (1.8-2.4); PHOSPHORUS 2.4 mg/dL (2.5-4.9)
[2019-03-08] MEDS: GABAPENTIN 100 MG CAP PO SCH (09:17)
[2019-03-08] MEDS: DOCUSATE SODIUM 100 MG GELCAP PO SCH (09:17)
[2019-03-08] MEDS: FERROUS SULFATE 325 MG TABEC PO SCH (09:17)
[2019-03-08] MEDS: ASCORBIC ACID 500 MG TAB PO SCH (09:17)
[2019-03-08] MEDS: NACL 0.9% 1,000 ML IV SCH (09:18)
[2019-03-08] MEDS: FAMOTIDINE 20 MG TAB PO SCH (09:18)
[2019-03-08] MEDS: LIDOCAINE 5% 1 EA PATCH TP SCH (09:18)
[2019-03-08] MEDS: VIT-B COMP/VIT-C/FOLIC ACID 1 TAB PO SCH (09:18)
--- NOTE | 2019-03-08 09:20 | NUR ---
AM MEDS GIVEN, SOME SWALLOWED WHOLE WITH PUDDING AND SOME CRUSHED WITH PUDDING, CLARISSA WELL. NO PROBLEM SWALLOWING.
[2019-03-08] MEDS ORDERED: SODIUM PHOS / POTASSIUM PHOS 1 PKT PDR PO SCH (09:30)
[2019-03-08] MEDS ORDERED: MAGNESIUM OXIDE 400 MG TAB PO SCH (09:30)
[2019-03-08] MEDS ORDERED: CIPR500T4 PO (09:36)
[2019-03-08] MEDS ORDERED: LACT10CA1 PO (09:40)
--- NOTE | 2019-03-08 10:11 | NUR ---
CALLED JACOBO #[phone] FROM [facility] TO CLARIFY PT'S TRANSPORTATION GOING HOME. JACOBO STATED [facility] WILL BE PICKING UP PT AT 1115 HRS. ACCORDING TO JACOBO ALL THE EQUIPMENTS THAT PT NEEDS WERE DELIVERED YESTERDAY TO PT'S HOME. CHAKA ASSIGNED MADE AWARE.
--- NOTE | 2019-03-08 10:30 | NUR ---
PT ASSISTED TO CHANGE IN TO HER CLOTHING, GETTING READY FOR DISCHARGE HOME WITH HOSPICE, TRANSPORT TO ARRIVE AT 1115, FAMILY AWARE, PT TALKING WITH CLEAR SPEECH, CAN'T WAIT TO GO HOME.
[2019-03-08] MEDS ORDERED: ONDA-24 SL (10:51)
--- NOTE | 2019-03-08 11:22 | NUR ---
LARRY DELACRUZ [facility] CALLED, REPORT GIVEN.
--- NOTE | 2019-03-08 11:30 | NUR ---
[facility] HERE FOR PROJECT ENGINEERING MANAGER, ALL PT BELONGS, COPY OF DC INSTRUCTION, ORIGINAL POL, RX GIVEN TO TRANSPORT STAFF TO GIVE TO [facility] AND FAMILY, VIKAS HOME NOW WITH HOME HOSPICE ([facility]). Addendum: 03/08/19 at 1151 by Tia Webber RN IV DC'D, CATH TIP INTACT, BLEEDING CONTROLLED, GAVIN REMAINS IN PLACE PER [facility]ICE.
[2019-03-08] MEDS ORDERED: LEVOFLOXACIN 250 MG/D5 PREMIX 50 ML IV SCH (18:00)
== END 2019-03-08 11:30 | disposition hospice, home (50) | DRG 871 ==
LOC: MED 12:24 → MMU 15:31 → MTU 03-07 07:41
PROVIDERS: ADMIT General Practice; ATTEND General Practice
DX: A41.9 Sepsis, unspecified organism (principal); N17.0 Acute kidney failure with tubular necrosis; E43 Unspecified severe protein-calorie malnutrition; R65.21 Severe sepsis with septic shock; E87.1 Hypo-osmolality and hyponatremia; N13.6 Pyonephrosis; M48.54XA Collapsed vertebra, not elsewhere classified, thoracic region, initial encounter for fracture; M81.0 Age-related osteoporosis without current pathological fracture; F41.9 Anxiety disorder, unspecified; K21.9 Gastro-esophageal reflux disease without esophagitis; I12.9 Hypertensive chronic kidney disease with stage 1 through stage 4 chronic kidney disease, or unspecified chronic kidney disease; N18.9 Chronic kidney disease, unspecified; H54.8 Legal blindness, as defined in USA; Z66 Do not resuscitate; Z51.5 Encounter for palliative care; E83.39 Other disorders of phosphorus metabolism; D63.8 Anemia in other chronic diseases classified elsewhere; M48.00 Spinal stenosis, site unspecified; E86.0 Dehydration; Z68.37 Body mass index [BMI] 37.0-37.9, adult; E11.22 Type 2 diabetes mellitus with diabetic chronic kidney disease; G89.29 Other chronic pain; E83.42 Hypomagnesemia; E11.65 Type 2 diabetes mellitus with hyperglycemia; Z87.81 Personal history of (healed) traumatic fracture; Z85.89 Personal history of malignant neoplasm of other organs and systems; Z91.81 History of falling; Z74.01 Bed confinement status; Z85.72 Personal history of non-Hodgkin lymphomas; Z79.899 Other long term (current) drug therapy
CPT/HCPCS: 36415; 51702; 71045; 80048; 80053; 81001; 82140; 82150; 82272; 82607; 82728; 82746; 82948; 83036; 83540; 83605; 83690; 83735; 83880; 84100; 84443; 84484; 85025; 85045; 85610; 85730; 86886; 86900; 86901; 87040; 87081; 87086; 87186; 92610; 93005; 93925; 93970; 96361; 96365; 97110; 97161-GP; 99291; J0696; J1815; J1956; J2060; J2270; J2405; J2916; J7030; J7060; Q0092

== ENCOUNTER 2019-04-20 10:29 | Inpatient (IN) | payer OTHER, MEDICAID ==
[~2019-04-20] VITALS: Ht 160 cm; Wt 56.2 kg
[2019-04-20] VITALS: BP 152/59
[~2019-04-20 10:29] MED LIST: ACET-2619 PO; AMLO-272 PO; ASCO-5 PO; ATI.5 PO; BISA-213 RC; CARV3.12 PO; CIPR500T4 PO; DOCU-299 PO; FAMO-90 PO; FERR325E14 PO; FLEPED RC; GABA300C PO; HYDR-5122 PO; LACT10CA1 PO; LID5T TP; MAGN400S60 PO; ONDA-24 SL; VITA1TAB44 PO
[2019-04-20 10:35] VITALS: BP 161/65
[2019-04-20] MEDS ORDERED: NACL 0.9% 500 ML IV SCH (11:01)
--- NOTE | 2019-04-20 11:20 | NUR ---
NOTED SMALL SACRAL AREA SORE---PICTURE TAKEN AND DOCUMENTED PRE-EXISTING GAVIN PURULENT APPEARING---REMOVED NEW CLEAN DIAPER APPLIED---; NEW GAVIN 16FR INSERTED BY CARSON DELACRUZ
[2019-04-20 11:29] LABS: BASOPHILS # (AUTO) 0.1 K/uL (0.00-0.22); BASOPHILS % (AUTO) 1.1 % (0.0-2.0); EOSINOPHILS # (AUTO) 0.1 K/uL (0-0.4); EOSINOPHILS % (AUTO) 2.5 % (0.0-4.0); HEMATOCRIT 35.7 % (36-48); HEMOGLOBIN 11.6 g/dL (12.0-16.0); LYMPHOCYTES # (AUTO) 2.2 K/uL (2.5-16.5); LYMPHOCYTES % (AUTO) 36.5 % (20.5-51.1); MEAN CORPUSCULAR HEMOGLOBIN 32 pg (27-31); MEAN CORPUSCULAR HGB CONC 33 g/dL (33-37); MEAN CORPUSCULAR VOLUME 98.6 fL (80-94); MONOCYTES # (AUTO) 0.4 K/uL (0.8-1.0); MONOCYTES % (AUTO) 6.1 % (1.7-9.3); NEUTROPHILS # (AUTO) 3.2 K/uL (1.8-7.7); NEUTROPHILS % (AUTO) 53.8 % (42.2-75.2); PLATELET COUNT (AUTO) 362 K/uL (140-450); RED BLOOD CELL COUNT(AUTO) 3.62 MIL/uL (4.20-5.40); RED CELL DISTRIBUTION WIDTH 17.4 % (11.6-13.7)
--- NOTE | 2019-04-20 11:30 | NUR ---
LABS AND CXR COMPLETED
--- NOTE | 2019-04-20 11:30 | NUR ---
C/O GENERALIZED ABDOMINAL PAIN , UNABLE TO HAVE A BM >1-2 WKS PRE-EXISTING GAVIN WITH PURULENT URINE PT ADMITS UNABLE TO AMBULATE 2 ND TO GENERALIZED WEAKNESS
[2019-04-20 11:42] LABS: ANION GAP 11.3 (8-16); CARBON DIOXIDE 30.2 mmol/L (21-32); CHLORIDE 101 mmol/L (98-107); GLUCOSE 162 mg/dL (74-106); POTASSIUM 4.5 mmol/L (3.5-5.1); SODIUM SERUM 138 mmol/L (136-145); UREA NITROGEN, BLOOD 23 mg/dL (7-18)
[2019-04-20 11:45] LABS: PROTHROMBIN TIME 9.7 secs (10.8-13.4)
[2019-04-20 11:48] LABS: ALBUMIN 2.6 g/dL (3.4-5.0); ASPARTATE AMINOTRANSFERASE 24 U/L (15-37); TOTAL BILIRUBIN 0.4 mg/dL (0.0-1.0)
--- NOTE | 2019-04-20 11:59 | NUR ---
Patient taken for CT scan via [facility] at this time.
--- NOTE | 2019-04-20 13:22 | NUR ---
SPEAKING WITH FAMILY
--- NOTE | 2019-04-20 13:32 | NUR ---
[place] DAUGHTER IN LAW [phone] PLEASE CALL FOR ANY QUESTIONS OR CHANGES
--- NOTE | 2019-04-20 13:52 | NUR ---
Note teddy in ED - 04/20/19 at 1357 by BARBY Patient discharged with v/s stable. Written and verbal after care instructions given and explained. Patient verbalized understanding. Ambulatory with steady gait. All questions addressed prior to discharge. Advised to follow up with PMD.
[2019-04-20 14:07] LABS: APPEARANCE,URINE CLOUDY (CLEAR); BILIRUBIN,URINE NEGATIVE (NEGATIVE); BLOOD, URINE 3+ (NEGATIVE); COLOR,URINE YELLOW (YELLOW); LEUKOCYTE ESTERASE ,URINE 2+ (NEGATIVE); NITRITE, URINE POSITIVE (NEGATIVE); UGLUCOSE NEGATIVE (NEGATIVE)
[2019-04-20 14:23] LABS: RBC,URINE >100 /HPF (0-5); WBC,URINE 20-60 /HPF (0-5)
[2019-04-20] MEDS ORDERED: LORazepam 2 MG/ML VIAL IM/IVP PRN (14:35)
[2019-04-20] MEDS ORDERED: ACETAMINOPHEN 325 MG TAB PO PRN ×2 (14:35→18:10)
[2019-04-20] MEDS ORDERED: ONDANSETRON 4 MG/2 ML VIAL IM/IVP PRN (14:35)
[2019-04-20] MEDS ORDERED: ZOLPIDEM 5 MG TAB PO PRN (14:35)
[2019-04-20] MEDS ORDERED: HYDROcodone/APAP 5/325 MG 1 TAB TAB PO PRN ×2 (14:35→18:10)
[2019-04-20] MEDS ORDERED: MORPHINE SULFATE 2 MG/ML SYR IVP PRN (14:35)
[2019-04-20] MEDS ORDERED: DOCUSATE SODIUM 100 MG GELCAP PO PRN (14:35)
[2019-04-20] MEDS ORDERED: cefTRIAXone 1,000 MG VIAL ONE (14:36)
[2019-04-20 15:06] LABS: FREE T4 (FREE THYROXINE) 1.07 ng/dL (0.76-1.46); MAGNESIUM 1.8 mg/dL (1.8-2.4); THYROID STIMULATING HORMONE 2.79 uIU/mL (0.34-3.74)
[2019-04-20] MEDS ORDERED: MELATONIN 3 MG TAB PO PRN (15:25)
--- NOTE | 2019-04-20 15:50 | NUR ---
RECEIVED PATIENT AND REPORT FROM ER NURSE. NO SIGNS OF RESPIRATORY DISTRESS. MONITORED PATIENTS VITALS, ALL WNL.
--- NOTE | 2019-04-20 15:55 | NUR ---
Pt transferred to Med/Surg via [facility] ROOM 123 -B, REPORT GIVEN TO ROSA DELACRUZ
[2019-04-20] MEDS ORDERED: GABA300C PO (16:57)
[2019-04-20] MEDS ORDERED: DOCU-299 PO (16:57)
[2019-04-20] MEDS ORDERED: HYDR-5122 PO (16:57)
[2019-04-20] MEDS ORDERED: FAMO-90 PO (16:57)
[2019-04-20] MEDS ORDERED: SENN-72 PO (16:57)
[2019-04-20] MEDS ORDERED: ACET-2619 PO (16:57)
--- NOTE | 2019-04-20 17:15 | NUR ---
Dr. Gentile at bedside speaking with son Lalit & son's Keila. Family brought in pt's top dentures & left at bedside. Per son, pt doesn't like to wear her bottom dentures.
--- NOTE | 2019-04-20 18:00 | NUR ---
Pt's son assisted pt to eat dinner. Per son, he will bring food from home d/t pt preference. Son states that pt able to kesha soft foods at home.
[2019-04-20] MEDS ORDERED: ONDANSETRON 4 MG ODT SL PRN (18:10)
[2019-04-20] MEDS ORDERED: LORazepam 0.5 MG TAB PO PRN (18:10)
[2019-04-20] MEDS ORDERED: BISACODYL 10 MG SUPP RC SCH (18:30)
[2019-04-20] MEDS ORDERED: SODIUM PHOSPHATE 118 ML ENEM RC SCH (19:00)
--- NOTE | 2019-04-20 19:16 | NUR ---
ENDORSED PATIENT TO ADVERTISEMENT COMPOSITOR NURSE. NO SIGNS OF RESPIRATORY DISTRESS.
--- NOTE | 2019-04-20 19:17 | NUR ---
RECEIVED REPORT FROM AM NURSE. PT AWAKE, ALERT AND ORIENTED X 3. PT ABLE TO ANSWER QUESTIONS AND FOLLOW COMMANDS. VISIBLE CHEST RISE AND FALL ON ROOM AIR. NO VISIBLE SIGNS OF DISTRESS. PT RIGHT FOREARM 24G INTACT AND INFUSING WELL. GAVIN CATH IN PLACE. PT HAS SKIN TEAR ON COCCYX AND SCAB ON NOSE. PT ON FALL PRECAUTIONS, BED IN LOWEST POSITION AND BED ALARM ON. CALL LIGHT WITHIN REACH.
[2019-04-20] MEDS: CARVEDILOL 3.125 MG TAB PO SCH (20:55)
--- NOTE | 2019-04-20 20:55 | NUR ---
MEDICATIONS ADMINISTERED. PT TOLERATED WELL.
[2019-04-20] MEDS: CLINDAMYCIN PHOS 600MG/D5W PM 50 ML IV SCH (20:56)
--- NOTE | 2019-04-20 22:05 | NUR ---
PT HAD SMALL BOWEL MOVEMENT. PT CLEANED AND REPOSITIONED FOR COMFORT.
[2019-04-20] MEDS ORDERED: DEXTROSE 50% 50 ML SYR IVP PRN (22:30)
[2019-04-20] MEDS ORDERED: INSULIN LISPRO SLIDING SCALE 100 UNITS/ML VIAL SUBQ PRN (22:30)
--- NOTE | 2019-04-20 22:40 | NUR ---
FLEET ENEMA ADMINISTERED FOR CONSTIPATION. PT TOLERATED WELL.
--- NOTE | 2019-04-20 23:38 | NUR ---
PT HAD SMALL BOWEL MOVEMENT. PT CLEANED AND REPOSITIONED TO OFFLOAD PRESSURE AREAS.
[2019-04-20] MEDS ORDERED: Z-GUARD PASTE TP ONE (23:56)
[2019-04-21] VITALS: BP 152/59
--- NOTE | 2019-04-21 02:00 | NUR ---
ROUNDED ON PT. PT SLEEPING, VISIBLE CHEST RISE AND FALL. NO DISTRESS NOTED. WILL CONTINUE TO MONITOR.
--- NOTE | 2019-04-21 04:00 | NUR ---
PT HAD LARGE BOWEL MOVEMENT. PT CLEANED AND REPOSITIONED TO OFFLOAD PRESSURE AREAS.
[2019-04-21] MEDS: CLINDAMYCIN PHOS 600MG/D5W PM 50 ML IV SCH ×3 (04:04→22:09)
--- NOTE | 2019-04-21 06:50 | NUR ---
RADIOLOGY CALLED TO SAY THAT PT REFUSED XR OF LEFT KNEE. RESIDENT MADE AWARE.
[2019-04-21 06:51] LABS: BASOPHILS % (AUTO) 0.8 % (0.0-2.0); EOSINOPHILS # (AUTO) 0.1 K/uL (0-0.4); EOSINOPHILS % (AUTO) 0.9 % (0.0-4.0); HEMOGLOBIN 9.5 g/dL (12.0-16.0); LYMPHOCYTES # (AUTO) 2.1 K/uL (2.5-16.5); LYMPHOCYTES % (AUTO) 34.9 % (20.5-51.1); MEAN CORPUSCULAR HEMOGLOBIN 32 pg (27-31); MEAN CORPUSCULAR HGB CONC 33 g/dL (33-37); MEAN CORPUSCULAR VOLUME 98.3 fL (80-94); MONOCYTES # (AUTO) 0.5 K/uL (0.8-1.0); MONOCYTES % (AUTO) 8.9 % (1.7-9.3); NEUTROPHILS # (AUTO) 3.3 K/uL (1.8-7.7); NEUTROPHILS % (AUTO) 54.5 % (42.2-75.2); PLATELET COUNT (AUTO) 285 K/uL (140-450); RED BLOOD CELL COUNT(AUTO) 2.95 MIL/uL (4.20-5.40); RED CELL DISTRIBUTION WIDTH 17.4 % (11.6-13.7)
[2019-04-21] MEDS: BLOOD GLUCOSE MONITORING 1 DEV DEV FS SCH ×4 (06:52→21:11)
[2019-04-21 07:15] LABS: ANION GAP 11.4 (8-16); CARBON DIOXIDE 27.7 mmol/L (21-32); CHLORIDE 105 mmol/L (98-107); CREATININE 0.9 mg/dL (0.6-1.3); GLUCOSE 138 mg/dL (74-106); POTASSIUM 4.1 mmol/L (3.5-5.1); SODIUM SERUM 140 mmol/L (136-145); UREA NITROGEN, BLOOD 19 mg/dL (7-18)
--- NOTE | 2019-04-21 07:15 | NUR ---
ENDORSED PT TO AM NURSE. PT IN STABLE CONDITION.
--- NOTE | 2019-04-21 07:16 | NUR ---
RECEIVED REPORT FROM FARMER AND GRAZIER NURSE. PATIENT LYING DOWN IN BED SLEEPING, AROUSABLE BY VOICE. 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 AAOX3, CALM, COOPERATIVE, SKIN COLOR APPROPRIATE TO ETHNICITY, WARM TO TOUCH. HAS ULCER ON SACRAL AREA. RESPIRATIONS EVEN, UNLABORED, ON ROOM AIR. IV SITE INTACT, PATENT, ON SALINE LOCK. ABDOMEN SOFT. PER NIGHT RN, PATIENT HAD 3 BM LAST NIGHT. REVIEWED PLAN OF CARE WITH PATIENT. PATIENT VERBALIZED UNDERSTANDING. SAFETY MEASURES IN PLACE, CALL LIGHT WITHIN REACH. WILL CONTINUE TO MONITOR.
[2019-04-21 07:17] LABS: MAGNESIUM 1.7 mg/dL (1.8-2.4)
[2019-04-21 07:21] LABS: CHOL/HDL RATIO 3.4 (1-4.5)
[2019-04-21 08:00] VITALS: BP 165/68
[2019-04-21] MEDS ORDERED: CALCIUM ACETATE 667 MG TAB PO SCH (08:22)
--- NOTE | 2019-04-21 08:44 | NUR ---
PATIENT HAS BEEN SCREENED AND CATEGORIZED HIGH NUTRITION RISK. PATIENT WILL BE SEEN WITHIN 1-2 DAYS OF ADMISSION. 04/21/19-04/22/[address]
[2019-04-21] MEDS ORDERED: MAG SULF 2000 MG/WATER PREMIX 50 ML IV SCH (09:00)
[2019-04-21] MEDS ORDERED: SODIUM PHOSPHATE 118 ML ENEM RC SCH (09:00)
--- NOTE | 2019-04-21 09:00 | NUR ---
PATIENT REFUSING LEFT KNEE XRAY AT THIS TIME PATIENT WANTS TO SLEEP. SAYS SHE WILL DO IT LATER. WILL CONTINUE TO MONITOR.
[2019-04-21] MEDS: FAMOTIDINE 20 MG TAB PO SCH (09:53)
[2019-04-21] MEDS: metFORMIN 500 MG TAB PO SCH ×2 (09:53→17:00)
[2019-04-21] MEDS: LACTOBACILLUS RHAMNOSUS GG 1 EACH CAP PO SCH (09:53)
[2019-04-21] MEDS: SENNA 8.6 MG TAB PO SCH (09:53)
[2019-04-21] MEDS: Z-GUARD PASTE TP SCH (09:54)
[2019-04-21] MEDS: DOCUSATE SODIUM 100 MG GELCAP PO SCH (09:54)
[2019-04-21] MEDS: CARVEDILOL 3.125 MG TAB PO SCH ×2 (09:54→22:06)
[2019-04-21] MEDS: NACL 0.9% 1,000 ML IV SCH ×2 (09:55→17:25)
--- NOTE | 2019-04-21 10:15 | NUR ---
PATIENT LYING DOWN IN BED SLEEPING, AROUSABLE BY VOICE. NO DISTRESS NOTED. SCHEDULED MEDICATIONS DUE GIVEN. WILL CONTINUE TO MONITOR.
--- NOTE | 2019-04-21 10:15 | NUR ---
FLEET ENEMA NOT GIVEN AT THIS TIME DUE TO PATIENT HAD BM X3 LAST NIGHT AFTER NIGHT RN GAVE ENEMA. DR. CAMPBELL AWARE.
[2019-04-21] MEDS: AMPICILLIN/SULBACTAM 1.5 GM in NACL 0.9% 50 ML IV SCH ×2 (13:02→20:30)
--- NOTE | 2019-04-21 14:25 | NUR ---
PATIENT FEELING ANXIOUS ATIVAN GIVEN AT THIS TIME. WILL CONTINUE TO MONITOR.
--- NOTE | 2019-04-21 14:52 | NUR ---
04/21/19 RD INITIAL ASSESSMENT COMPLETED PLEASE REFER TO NUTRITION ASSESSMENT UNDER CARE ACTIVITY FOR ESTIMATED NUTRITIONAL NEEDS. 1. CONTINUE CCHO 60 GM, PUREE, RENAL, GLUCERNA BID DIET TOLERATED 2. RD TO FOLLOW-UP 2-3 DAYS, HIGH RISK LINDA MEJIA, RD
--- NOTE | 2019-04-21 15:10 | NUR ---
ASSISTED MS SQL DBA IN CLEANING AND REPOSITIONING PATIENT. WILL CONTINUE TO MONITOR.
[2019-04-21 16:00] VITALS: BP 134/55
--- NOTE | 2019-04-21 17:43 | NUR ---
PATIENT LYING DOWN IN BED. NO DISTRESS NOTED. DENIES ANY PAIN. SCHEDULED MEDICATIONS DUE GIVEN. METFORMIN HELD AT THIS TIME DUE TO DECREASED GLUCOSE AND PATIENT HAS POOR APPETITE. WILL CONTINUE TO MONITOR.
--- NOTE | 2019-04-21 19:24 | NUR ---
GAVE REPORT TO SENIOR ENVIRONMENTAL TECHNICIAN NURSE FOR CONTINUITY OF CARE. PATIENT IN STABLE CONDITION/
[2019-04-21] MEDS ORDERED: LORazepam 2 MG/ML VIAL IM/IVP SCH (20:50)
--- NOTE | 2019-04-21 21:00 | NUR ---
PT PULLING OUT HER GAVIN CATHETER AND IV LINE. INFORMED . PT WILL ORDER RESTRAINTS, AND ATIVAN IV ONCE
--- NOTE | 2019-04-21 21:10 | NUR ---
TURNED AND CLEANED PT. FOR OCCULT BLOOD COLLECTED.
[2019-04-21] MEDS: GABAPENTIN 300 MG CAP PO SCH (22:08)
--- NOTE | 2019-04-21 23:00 | NUR ---
INFORMED DR. FALCON ON PT REFUSING XRAY ON LEFT LEG FOR PAIN, CANCELLED ORDER. PRE-ABUMIN SERUM THAT WAS ORDERED EARLIER WAS CANCELLED TOO
[2019-04-22] VITALS: BP 126/65
--- NOTE | 2019-04-22 02:30 | NUR ---
PT PULLED OUT IVF ON THE RIGHT AND REINSERTED NEW LINE ON RIGHT HAND
[2019-04-22] MEDS: NACL 0.9% 1,000 ML IV SCH ×3 (03:25→23:41)
--- NOTE | 2019-04-22 05:19 | NUR ---
EDISON, DAUGHTER OF PT, CALLED AND WAS INFORMED THAT PT KEEPS ON PULLING HER GAVIN CATHETER AND IV LINES. EDISON SAID OK WITH THE SOFT RESTRAINTS.
[2019-04-22] MEDS: CLINDAMYCIN PHOS 600MG/D5W PM 50 ML IV SCH (05:31)
[2019-04-22] MEDS: AMPICILLIN/SULBACTAM 1.5 GM in NACL 0.9% 50 ML IV SCH ×3 (05:31→21:32)
[2019-04-22] MEDS: BLOOD GLUCOSE MONITORING 1 DEV DEV FS SCH ×4 (05:32→21:13)
[2019-04-22 06:00] LABS: BASOPHILS # (AUTO) 0.1 K/uL (0.00-0.22); BASOPHILS % (AUTO) 1.3 % (0.0-2.0); EOSINOPHILS # (AUTO) 0.1 K/uL (0-0.4); EOSINOPHILS % (AUTO) 0.9 % (0.0-4.0); HEMATOCRIT 32.3 % (36-48); HEMOGLOBIN 10.6 g/dL (12.0-16.0); LYMPHOCYTES # (AUTO) 2.2 K/uL (2.5-16.5); MEAN CORPUSCULAR HEMOGLOBIN 32 pg (27-31); MEAN CORPUSCULAR HGB CONC 33 g/dL (33-37); MEAN CORPUSCULAR VOLUME 98.7 fL (80-94); MONOCYTES # (AUTO) 0.5 K/uL (0.8-1.0); MONOCYTES % (AUTO) 7.5 % (1.7-9.3); NEUTROPHILS # (AUTO) 3.3 K/uL (1.8-7.7); NEUTROPHILS % (AUTO) 54.3 % (42.2-75.2); PLATELET COUNT (AUTO) 330 K/uL (140-450); RED BLOOD CELL COUNT(AUTO) 3.27 MIL/uL (4.20-5.40); RED CELL DISTRIBUTION WIDTH 17.6 % (11.6-13.7); WHITE BLOOD COUNT (AUTO) 6.1 K/uL (4.8-10.8)
[2019-04-22 06:34] LABS: ANION GAP 13.9 (8-16); CARBON DIOXIDE 27.5 mmol/L (21-32); CHLORIDE 102 mmol/L (98-107); CREATININE 0.9 mg/dL (0.6-1.3); GLUCOSE 121 mg/dL (74-106); POTASSIUM 3.4 mmol/L (3.5-5.1); SODIUM SERUM 140 mmol/L (136-145); UREA NITROGEN, BLOOD 15 mg/dL (7-18)
[2019-04-22 06:42] LABS: MAGNESIUM 1.8 mg/dL (1.8-2.4)
--- NOTE | 2019-04-22 06:52 | NUR ---
INFORMED DR. COSTA THAT PT SCREAMS DR. SNEED. REFUSED ATIVAN PO
--- NOTE | 2019-04-22 06:59 | NUR ---
PT WAKE, ALERT FOR MONITORING; CHECK O2 SAT; STARTED ON AT 2 LPM PRN DUE TO PT SCREAMING AT O2 SAT WENT DOWN TO 80%. O2 SAT NOW AT 99%
--- NOTE | 2019-04-22 07:51 | NUR ---
RECEIVED BED SIDE REPORT FROM CUSTOM SHOE DESIGNER AND MAKER RN SHERYL. PT A/O X1, FOUND IV BLEEDING, INFILTRATED AND TOOK IT OUT, APPLIED PRESSURE. PT AGITATED BECAUSE SHE IS ON BILAT SOFT WRIST RESTRAINTS AND SAYS "THEY ARE TRYING TO HURT ME". RESIDENT AT BEDSIDE, ORDERED URINE CULTURE. GAVIN CATH INSERTED ON 04/20 IN THE ED. ON CONTACT PRECAUTION MRDO URINE. ON 2L NC 100%. TOOK BP ON LEFT CALF 136/56. WILL CONTINUE TO MONITOR
[2019-04-22] MEDS: metFORMIN 500 MG TAB PO SCH ×2 (08:53→17:20)
[2019-04-22] MEDS: CALCIUM ACETATE 667 MG TAB PO SCH (08:53)
[2019-04-22] MEDS: DOCUSATE SODIUM 100 MG GELCAP PO SCH (08:53)
[2019-04-22] MEDS: FAMOTIDINE 20 MG TAB PO SCH (08:53)
[2019-04-22] MEDS: LACTOBACILLUS RHAMNOSUS GG 1 EACH CAP PO SCH (08:53)
[2019-04-22] MEDS: SENNA 8.6 MG TAB PO SCH (08:53)
[2019-04-22] MEDS: CARVEDILOL 3.125 MG TAB PO SCH ×2 (08:54→21:27)
[2019-04-22] MEDS: Z-GUARD PASTE TP SCH (09:00)
[2019-04-22] MEDS ORDERED: ALBUTEROL SULFATE/IPRATROPIU 3 ML SOL IH PRN (09:20)
--- NOTE | 2019-04-22 09:30 | NUR ---
WOUND CARE EVALUATION NOTE: REASON FOR EVALUATION: LOW TONY SCALE, ARM AND BUTTOCK WOUND SKIN ASSESSMENT DONE WITH THIS 88 Y/O FEMALE PT ADMITTED TO [facility] WITH INITIAL DX UTI. CLARIFICATION: SACRALCOCCYX SKIN DRY CLEAN AND INTACT, ARMS SKIN INTACT. PT IS AWAKE. CONFUSE WITH RESTLESS, PT. WITH WRIST RESTRAINTS. SKIN IS WARM AND DRY, BLE NO HAIR GROWTH, NO EDEMA. DORSAL PEDAL PULSES PRESENT AND NORMAL. CAPILLARY REFILLED < 2 SEC. X 10 TOES. INCONTINENT OF BOWEL X1 DURING ASSESSMENT. F/C PATENT WITH SMALL AMOUNT YELLOW COLOR URINE OUT PUT OBSERVED. PLAN OF CARE DISCUSSED WITH PRIMARY RN. INTEGUMENTARY: -DRY FLAKY SKIN TO UPPER AND LOWER EXTREMITIES -R/L FOREARMS MULTIPLE ECCHYMOSES WITH SKIN INTACT, +1 EDEMA -INCONTINENT ASSOCIATE DERMATITIS (IAD) TO: B/L BUTTOCKS EXTENDED TO PERINEUM, FLAKY SKIN WITH REDNESS -SACRALCOCCYX AND BILATERAL HEELS BLANCHABLE REDNESS FROM POSITIONING RECOMMENDATIONS: -APPLY HYDRA GUARD TO ALL EXTREMITIES, R/L BUTTOCKS EXTENDED TO PERINEUM BID AND PRN IF SOILING -APPLY OPTIC FOAM DRESSING TO SACROCOCCYX QD AND PRN IF SOILING PREVENTION -APPLY HEEL PROTECTORS TO BOTH HEELS AT ALL TIMES -OFFLOAD BILATERAL HEELS BY PLACING PILLOWS UNDER CALVES UNLESS OTHERWISE CONTRAINDICATED -PRESSURE REDISTRIBUTION SURFACE THERAPY -TURN AND REPOSITION Q2H, OFFLOAD SACRALCOCCYX AND BUTTOCKS BY TURNING RIGHT AND LEFT -CONTINUE TO FOLLOW RD RECOMMENDATIONS WILL FOLLOW UP PT Q7-10 DAYS. PLEASE CONTACT WOUND CARE NURSE FOR ANY QUESTION AND CHANGE OF WOUND CONDITION.
[2019-04-22 10:43] VITALS: BP 136/56
[2019-04-22] MEDS ORDERED: POTASSIUM CHLORIDE 10 MEQ TABER PO SCH (11:00)
--- NOTE | 2019-04-22 11:56 | NUR ---
APPLIED OPTIFOAM TO SACRAL AREA. REDNESS BUT SKIN INTACT.
--- NOTE | 2019-04-22 11:56 | NUR ---
APPLIED ZGUARD AND OPTIFOAM TO SACRAL AREA. INITIALS, DATE, TIME PUT ON OPTIFOAM. SKIN INTACT. WILL CONTINUE TO MONITOR
[2019-04-22 12:12] LABS: FOLIC ACID 7.3 ng/mL (>3.0)
--- NOTE | 2019-04-22 12:52 | NUR ---
SITTER ON FLOOR STARTED LEFT WRIST 22G IV. NS RUNNING AT 100CC/HR. WILL HANG IV ABX. PT STABLE, OPTIFOAM APPLIED. WILL CONTINUE TO MONITOR
[2019-04-22] MEDS: HYDRAGUARD CREAM TP SCH (13:11)
[2019-04-22] MEDS: ALBUTEROL SULFATE/IPRATROPIU 3 ML SOL IH SCH ×2 (16:09→19:00)
--- NOTE | 2019-04-22 16:09 | NUR ---
HHN THERAPY LATE NO ORDER RECEIVED IN CARDIOPULMONARY DEPT 1300 HHN THERAPY ORDER NOTIFIED BY ANI/JAYME
--- NOTE | 2019-04-22 16:50 | NUR ---
NOTIFIED RESIDENT ABOUT PT'S BP 167/62. TOLD ME THAT HE WOULD ADD PRN BP MED AND [address] BAILIFF
--- NOTE | 2019-04-22 17:29 | NUR ---
APPLIED HYDROGUARD AND NEW OPTIFOAM ON PT. CAME TO SEE PT. NO CHANGE IN ORDERS. PT STILL ON RESTRAINTS DUE TO ATTEMPTING TO PULL OUT NC. WILL CONTINUE TO MONITOR
[2019-04-22 17:48] VITALS: BP 167/62
--- NOTE | 2019-04-22 19:14 | NUR ---
GAVE BED SIDE REPORT TO TECHNICAL SUPERVISOR RN FEBRUARY. PT IN STABLE CONDITION
--- NOTE | 2019-04-22 19:15 | NUR ---
RECEIVED BEDSIDE REPORT FROM DAY SHIFT NURSE. NO SOB NOTED. BREATHING EVEN AND UNLABORED. SKIN INTACT, WARM AND DRY TO TOUCH. REDNESS ON SACRAL AREA NOTED. IV SITE ON L WRIST. PT ON RESTRAINT D/T REMOVING LINE. BOARD UPDATED, FALL PRECAUTION IN PLACE. ALL SAFETY MEASURE ARE MET. BED IN LOW POSITION, CALL LIGHT WITHIN REACH.
--- NOTE | 2019-04-22 20:35 | NUR ---
PT HAD LARGE BM. CHANGED PT WITH ROLLER COASTER ENGINEER. PT TRIED TO HIT ROLLER COASTER ENGINEER.
[2019-04-22] MEDS: GABAPENTIN 300 MG CAP PO SCH (21:26)
--- NOTE | 2019-04-22 21:32 | NUR ---
GIVEN UNASYN, COREG, GABAPENTIN AND HEPARIN MD ORDERED. PT TOLERATED WELL. BS CHECKED, 135, NO INSULIN COVERAGE NEEDED.
--- NOTE | 2019-04-22 23:55 | NUR ---
VS CHECKED, WITHIN PT'S BASELINE. WILL CONTINUE TO MONITOR.
[2019-04-23] VITALS: BP 95/65
[2019-04-23] MEDS: HYDRAGUARD CREAM TP SCH ×2 (01:49→14:15)
--- NOTE | 2019-04-23 02:31 | NUR ---
PT AWAKE. LYING IN BED. BREATHING EVEN AND UNLABORED.
--- NOTE | 2019-04-23 03:15 | NUR ---
PT HAD SMALL BM. CHANGED PT WITH METAL DRILL OPERATOR.
[2019-04-23] MEDS: AMPICILLIN/SULBACTAM 1.5 GM in NACL 0.9% 50 ML IV SCH ×3 (04:16→21:34)
--- NOTE | 2019-04-23 04:16 | NUR ---
GIVEN UNASYN MD ORDERED. PT TOLERATED WELL. WILL CONTINUE TO MONITOR.
[2019-04-23] MEDS: BLOOD GLUCOSE MONITORING 1 DEV DEV FS SCH ×4 (05:43→21:33)
--- NOTE | 2019-04-23 05:43 | NUR ---
BS CHECKED, 132, NO INSULIN COVERAGE NEEDED. BED IN LOW POSITION. WILL CONTINUE TO MONITOR.
[2019-04-23] MEDS: ALBUTEROL SULFATE/IPRATROPIU 3 ML SOL IH SCH ×3 (06:55→20:02)
--- NOTE | 2019-04-23 06:59 | NUR ---
PT GIVEN BREATHING TX. PT ATTEMPTED TO REMOVE MASK SEVERAL TIMES. PT HAS BILATERAL DIMINISHED BREATHSOUNDS. PT FOUND ON 4LNC SPO2 100%, LITER FLOW TITRATED DOWN TO 2LPM POST TX. SPO2 100%.
--- NOTE | 2019-04-23 07:22 | NUR ---
ENDORSED PT TO DAY SHIFT NURSE. PT IN STABLE CONDITION.
--- NOTE | 2019-04-23 07:24 | NUR ---
RECEIVED BEDSIDE REPORT FROM MOUNTER SMOKING PIPE NURSE FOR CONTINUITY OF CARE. PATIENT AWAKE AND SITTING UP ON BED. PATIENT AAOX3, TO NAME, PLACE, AND TIME. PATIENT IS LEGALLY BLIND BOTH EYES. PATIENT IS OPN SOFT WRIST RESTRAINT DUE TO ATTEMPT TO PULL OUT GAVIN AND IV. ASSESSED PATIENT, CIRCULATION WITHIN NORMAL, NO INJURY AND < 3 FOR BLOOD CAPILLARY RETURN. PATIENT IS ABLE TO MAKE NEEDS KNOWN AND FOLLOWS COMMANDS. RESPIRATION EVEN AND UNLABORED ON 2LPM VIA NC. DENIED PAIN AND SOB AT THIS TIME. NO SIGNS OF DISTRESS NOTED. IV ON LAC 18G, CLEAN AND DRY, INFUSING AT PER MD ORDER. SACRAL REDNESS ON BUTTOCK NOTED. GAVIN IN PLACE AND DRAINING YELLOW URINE. PATIENT IS BEDREST. SAFETY MEASURES IN PLACE. BED ALARM ACTIVATED. BED IN LOW POSITION AND CALL LIGHT WITHIN REACH.
[2019-04-23 08:00] VITALS: BP 126/55
[2019-04-23] MEDS: CALCIUM ACETATE 667 MG TAB PO SCH (08:51)
[2019-04-23] MEDS: FAMOTIDINE 20 MG TAB PO SCH (08:51)
[2019-04-23] MEDS: LACTOBACILLUS RHAMNOSUS GG 1 EACH CAP PO SCH (08:51)
[2019-04-23] MEDS: DOCUSATE SODIUM 100 MG GELCAP PO SCH (08:52)
[2019-04-23] MEDS: SENNA 8.6 MG TAB PO SCH (08:52)
[2019-04-23] MEDS: metFORMIN 500 MG TAB PO SCH ×2 (08:52→17:33)
[2019-04-23] MEDS: CARVEDILOL 3.125 MG TAB PO SCH ×2 (08:53→21:34)
[2019-04-23] MEDS: Z-GUARD PASTE TP SCH (08:59)
[2019-04-23] MEDS: NACL 0.9% 1,000 ML IV SCH ×2 (09:00→19:25)
--- NOTE | 2019-04-23 09:11 | NUR ---
ADMINISTERED MEDS PER MD ORDER, PATIENT TOLERATED WELL. PATIENT AWAKE AND RESTING ON BED. DENIED PAIN AND SOB. RESPIRATION STEPHANIE AND UNLABORED ON 2LPM VIA NC. NO SIGNS OF DISTRESS NOTED. SAFETY MEASURES IN PLACE. BED ALARM ACTIVATED. BED IN LOW POSITION AND CALL LIGHT WITHIN REACH. INSTRUCTED PATIENT TO USE THE CALL LIGHT FOR ANY ASSISTANCE AND PATIENT WAS AWARE.
[2019-04-23 10:20] LABS: BASOPHILS # (AUTO) 0.1 K/uL (0.00-0.22); BASOPHILS % (AUTO) 1.2 % (0.0-2.0); EOSINOPHILS % (AUTO) 0.3 % (0.0-4.0); HEMATOCRIT 35.1 % (36-48); HEMOGLOBIN 11.3 g/dL (12.0-16.0); LYMPHOCYTES # (AUTO) 1.9 K/uL (2.5-16.5); LYMPHOCYTES % (AUTO) 26.8 % (20.5-51.1); MEAN CORPUSCULAR HEMOGLOBIN 32 pg (27-31); MEAN CORPUSCULAR HGB CONC 32 g/dL (33-37); MEAN CORPUSCULAR VOLUME 98.2 fL (80-94); MONOCYTES # (AUTO) 0.6 K/uL (0.8-1.0); MONOCYTES % (AUTO) 7.9 % (1.7-9.3); NEUTROPHILS # (AUTO) 4.6 K/uL (1.8-7.7); NEUTROPHILS % (AUTO) 63.8 % (42.2-75.2); PLATELET COUNT (AUTO) 308 K/uL (140-450); RED BLOOD CELL COUNT(AUTO) 3.57 MIL/uL (4.20-5.40); WHITE BLOOD COUNT (AUTO) 7.2 K/uL (4.8-10.8)
--- NOTE | 2019-04-23 10:20 | NUR ---
PATIENT AWAKE AND TALKING TO VISITORS AT BEDSIDE. DENIED PAIN AND SOB. NO SIGNS OF DISTRESS NOTED. SAFETY MEASURES IN PLACE. BED IN LOW POSITION AND CALL LIGHT WITHIN REACH.
[2019-04-23 10:39] LABS: ANION GAP 11.4 (8-16); CARBON DIOXIDE 27.4 mmol/L (21-32); CHLORIDE 105 mmol/L (98-107); CREATININE 0.8 mg/dL (0.6-1.3); GLUCOSE 154 mg/dL (74-106); SODIUM SERUM 141 mmol/L (136-145); UREA NITROGEN, BLOOD 10 mg/dL (7-18)
[2019-04-23 10:41] LABS: POTASSIUM 2.8 mmol/L (3.5-5.1)
[2019-04-23 10:42] LABS: MAGNESIUM 1.6 mg/dL (1.8-2.4)
--- NOTE | 2019-04-23 10:45 | NUR ---
RECEIVED A CRITICAL LAB VALUE FOR POTASSIUM 2.8. REPORTED TO DR CAMPBELL, AND DR CAMPBELL WAS AWARE OF CRITICAL LAB VALUE.
[2019-04-23] MEDS ORDERED: POTASSIUM CHLORIDE 10 MEQ TABER PO SCH ×3 (11:00→19:00)
--- NOTE | 2019-04-23 11:30 | NUR ---
ASSISTED HAMMER SHOP SUPERVISOR TO TURN AND CLEAN PATIENT. PATIENT HAS ONE MODERATED FORM BM. PATIENT TOLERATED WELL. RESPIRATION EVEN AND UNLABORED ON 2LPM VIA NC. NO SIGNS OF DISTRESS NOTED. SAFETY MEASURES IN PLACE. BED IN LOW POSITION AND CALL LIGHT WITHIN REACH. BED ALARM ACTIVATED.
[2019-04-23] MEDS ORDERED: LORazepam 2 MG/ML VIAL IVP SCH (12:00)
[2019-04-23] MEDS: MAG SULF 2000 MG/WATER PREMIX 50 ML IV SCH ×2 (12:11→14:15)
--- NOTE | 2019-04-23 13:40 | NUR ---
PATIENT IS SLEEPING ON BED. AROUSABLE TO VOICE. EVEN AND UNLABORED CHEST RISES NOTED. NO SIGNS OF DISTRESS NOTED. SAFETY MEASURES IN PLACE. BED IN LOW POSITION AND CALL LIGHT WITHIN REACH. BED ALARM ACTIVATED.
--- NOTE | 2019-04-23 15:10 | NUR ---
ADMINISTERED MED PER MD ORDER, PATIENT TOLERATED WELL. PATIENT DENIED PAIN AND SOB. RESPIRATION EVEN AND UNLABORED ON 2LPM VIA NC. NO SIGNS OF DISTRESS NOTED. SAFETY MEASURES IN PLACE. BED IN LOW POSITION AND CALL LIGHT WITHIN REACH. BED ALARM ACTIVATED.
[2019-04-23 16:00] VITALS: BP 120/44
--- NOTE | 2019-04-23 17:33 | NUR ---
ADMINISTERED MED PER MD ORDER, PATIENT TOLERATED WELL. PATIENT IS RESTING ON BED AT THIS TIME. RESPIRATION EVEN AND UNLABORED ON 2LPM VIA NC. DENIED PAIN AND SOB.NO SIGNS OF DISTRESS NOTED. SAFETY MEASURES IN PLACE. BED IN LOW POSITION AND CALL LIGHT WITHIN REACH. BE ALARM ACTIVATED.
--- NOTE | 2019-04-23 18:48 | NUR ---
PATIENT AWAKE AND TALKING TO DAUGHTER IN LAW [place] AND SON LIN BY BEDSIDE. RESPIRATION EVEN AND UNLABORED ON 2LPM VIA NC, SPO2 IS AT 100%. NO SIGNS OF DISTRESS NOTED. SAFETY MEASURES IN PLACE. BED IN LOW POSITION AND CALL LIGHT WITHIN REACH. BED ALARM ACTIVATED.
--- NOTE | 2019-04-23 19:08 | NUR ---
ENDORSED PATIENT AT BESIDE TO TROUBLE TRACER NURSE FOR CONTINUITY OF CARE. PATIENT AWAKE AND TALKING TO DAUGHTER IN LAW AND SON LIN AT BEDSIDE. PATIENT IS IN STABLE CONDITION. NO SIGNS OF DISTRESS NOTED. SAFETY MEASURES IN PLACE. BED IN LOW POSITION AND CALL LIGHT WITH REACH. BED ALARM ACTIVATED.
--- NOTE | 2019-04-23 19:09 | NUR ---
RECEIVED PT ON STABLE CONDITION FROM AM NURSE. PT IS AWAKE,ALERT,ORIENTED X3. WITH PERIODS OF CONFUSION. MED SURG PT. ON BEDREST. WITH IVF INFUSING WELL ON THE LT WRIST G 22. CLEAR AND PATENT. WITH JORDAN FEET HEEL PROTECTOR. GAVIN CATH TO GRAVITY. TRYING TO PULL OUT TUBINGS. WITH JORDAN SOFT WRIST RESTRAINT ON. BED ON LOW POSITION,FREQ CHECK NEEDED. SIDE RAILS UP X2. CALL LIGHT PLACED WITHIN REACH. FREQUENT ORIENTATION. WILL CONTINUE TO MONITOR.
[2019-04-23 21:00] VITALS: BP 150/60
--- NOTE | 2019-04-23 21:33 | NUR ---
BLOOD SUGAR WAS CHECKED RESULT 142. NO INSULIN COVERAGE. PROVIDED WITH SOME APPLE SAUCE. WILL CONTINUE TO MONITOR.
[2019-04-23] MEDS: GABAPENTIN 300 MG CAP PO SCH (21:34)
--- NOTE | 2019-04-23 23:14 | NUR ---
PT CONFUSED. PULLED OUT IV ACCESS . CATHETER INTACT. WILL START ANEW IV ACCESS.
[2019-04-24] MEDS: HYDRAGUARD CREAM TP SCH (00:12)
[2019-04-24 00:30] VITALS: BP 148/58
--- NOTE | 2019-04-24 01:20 | NUR ---
ABLE TO START A NEW IV ACCESS ON THE RT WRIST G#24. CLEAR AND PATENT. SECURED WITH KERLIX . WILL CONTINUE TO MONITOR FOR PT STILL REMAIN CONFUSED.
--- NOTE | 2019-04-24 04:00 | NUR ---
PT STILL REMAINS CONFUSED. ALWAYS TRYING TO REMOVE TUBINGS. SOFT WRIST RESTRAIN ON.
[2019-04-24] MEDS: AMPICILLIN/SULBACTAM 1.5 GM in NACL 0.9% 50 ML IV SCH (05:02)
[2019-04-24] MEDS: NACL 0.9% 1,000 ML IV SCH (05:20)
--- NOTE | 2019-04-24 05:30 | NUR ---
PT HAD A LOOSE BM. CLEANED AND KEPT DRY. PERINEAL AREA WITH REDNESS, APPLIED Z GUARD.
[2019-04-24] MEDS: BLOOD GLUCOSE MONITORING 1 DEV DEV FS SCH ×2 (05:58→12:05)
--- NOTE | 2019-04-24 05:58 | NUR ---
BLOOD SUGAR THIS AM 113. NO INSULIN NEEDED.
[2019-04-24 07:00] LABS: MAGNESIUM 2.4 mg/dL (1.8-2.4); PHOSPHORUS 1.9 mg/dL (2.5-4.9)
[2019-04-24 07:11] LABS: ANION GAP 9.6 (8-16); CARBON DIOXIDE 27.4 mmol/L (21-32); CHLORIDE 109 mmol/L (98-107); CREATININE 0.8 mg/dL (0.6-1.3); GLUCOSE 133 mg/dL (74-106); SODIUM SERUM 142 mmol/L (136-145); UREA NITROGEN, BLOOD 10 mg/dL (7-18)
--- NOTE | 2019-04-24 07:18 | NUR ---
ENDORSED PT IN STABLE CONDITION TO AM NURSE.
[2019-04-24 07:19] LABS: BASOPHILS # (AUTO) 0.1 K/uL (0.00-0.22); EOSINOPHILS # (AUTO) 0.1 K/uL (0-0.4); EOSINOPHILS % (AUTO) 1.2 % (0.0-4.0); HEMATOCRIT 28.2 % (36-48); HEMOGLOBIN 9.4 g/dL (12.0-16.0); LYMPHOCYTES % (AUTO) 32.5 % (20.5-51.1); MEAN CORPUSCULAR HEMOGLOBIN 33 pg (27-31); MEAN CORPUSCULAR HGB CONC 33 g/dL (33-37); MEAN CORPUSCULAR VOLUME 98.2 fL (80-94); MONOCYTES # (AUTO) 0.6 K/uL (0.8-1.0); MONOCYTES % (AUTO) 10.3 % (1.7-9.3); NEUTROPHILS # (AUTO) 3.4 K/uL (1.8-7.7); PLATELET COUNT (AUTO) 277 K/uL (140-450); RED BLOOD CELL COUNT(AUTO) 2.87 MIL/uL (4.20-5.40); RED CELL DISTRIBUTION WIDTH 18.2 % (11.6-13.7); WHITE BLOOD COUNT (AUTO) 6.1 K/uL (4.8-10.8)
--- NOTE | 2019-04-24 07:20 | NUR ---
RECEIVED BED SIDE REPORT FROM CONDUIT INSTALLER RN. PT SLEEPING, ON RA 02 SAT 100%, APPEARS IN NO PAIN. CONFUSED, DOES NOT KNOW NAME, PLACE, TIME, NOR SITUATION. BILAT HEEL PROTECTORS ON. BED ALARM ON, CALL LIGHT WITHIN REACH. WILL CONTINUE TO MONITOR
[2019-04-24] MEDS ORDERED: HUMSLIDE SUBQ ×2 (08:05→08:24)
[2019-04-24] MEDS ORDERED: Hydraguard TP ×2 (08:05→08:24)
[2019-04-24] MEDS ORDERED: LACT10CA PO ×2 (08:05→08:24)
[2019-04-24] MEDS ORDERED: CARV3.122 PO (08:05)
[2019-04-24] MEDS ORDERED: DOCU-299 PO (08:05)
[2019-04-24] MEDS ORDERED: ZGUARD TP ×2 (08:05→08:24)
[2019-04-24] MEDS ORDERED: MELA3TAB PO ×2 (08:05→08:24)
[2019-04-24] MEDS ORDERED: ROC1PM IV (08:05)
[2019-04-24] MEDS ORDERED: PHO667 PO (08:05)
[2019-04-24] MEDS ORDERED: ONDA4ODT2 SL (08:05)
[2019-04-24] MEDS ORDERED: GLUC-805 FS ×2 (08:05→08:24)
[2019-04-24] MEDS ORDERED: SENN-74 PO (08:05)
[2019-04-24] MEDS ORDERED: METF500T PO ×2 (08:05→08:24)
[2019-04-24] MEDS ORDERED: GABA-638 PO (08:05)
[2019-04-24] MEDS ORDERED: POTA10TE30 PO ×2 (08:05→08:24)
[2019-04-24] MEDS ORDERED: FAMO20TA13 PO (08:05)
[2019-04-24] MEDS ORDERED: D50SYR IVP ×2 (08:05→08:24)
[2019-04-24] MEDS ORDERED: ALBU3SOL83 IH ×4 (08:05→08:24)
[2019-04-24] MEDS ORDERED: ACET-1182 PO (08:05)
--- NOTE | 2019-04-24 08:23 | NUR ---
HORTICULTURAL MANAGER AT BEDSIDE FOR PATIENT ASSESS FOR BREAKFAST TRAY NO SOB NOTED CREDENTIALING ANALYST TO ATTEMPT HHN THERAPY AND RESPIRATORY DRUG AT A LATER TIME
[2019-04-24] MEDS ORDERED: PHOS1PDR4 PO (08:24)
[2019-04-24] MEDS ORDERED: CEFT1SOL1 IV (08:25)
--- NOTE | 2019-04-24 08:44 | NUR ---
BP 147/86, WILL GIVE AM BP MED
[2019-04-24] MEDS: metFORMIN 500 MG TAB PO SCH (08:56)
[2019-04-24] MEDS: DOCUSATE SODIUM 100 MG GELCAP PO SCH (08:57)
[2019-04-24] MEDS: CARVEDILOL 3.125 MG TAB PO SCH (08:57)
[2019-04-24] MEDS: LACTOBACILLUS RHAMNOSUS GG 1 EACH CAP PO SCH (08:57)
[2019-04-24] MEDS: CALCIUM ACETATE 667 MG TAB PO SCH (08:57)
[2019-04-24] MEDS: FAMOTIDINE 20 MG TAB PO SCH (08:57)
[2019-04-24] MEDS: SENNA 8.6 MG TAB PO SCH (09:00)
[2019-04-24] MEDS ORDERED: POTASSIUM CHLORIDE 10 MEQ TABER PO SCH ×2 (09:00)
[2019-04-24] MEDS ORDERED: SODIUM PHOS / POTASSIUM PHOS 1 PKT PDR PO SCH (09:00)
[2019-04-24] MEDS: Z-GUARD PASTE TP SCH (09:05)
[2019-04-24] MEDS: ALBUTEROL SULFATE/IPRATROPIU 3 ML SOL IH SCH ×2 (09:44→14:20)
--- NOTE | 2019-04-24 10:08 | NUR ---
HELD SENNA D/T PATIENT HAVING 1 LARGE BM TODAY. GAVE COLACE PER MD ORDER. PT STATES SHE HAS 8/10 LEFT KNEE PAIN, NO SWELLING OR REDNESS NOTED. SHE SAID IT HURTS D/T FALL SHE HAD PRIOR TO ADMISSION. ONLY TYLENOL AVAILABLE TO GIVE. CALLED THROUGH CELL PHONE TO ASK IF HE CAN ORDER NORCO OR MORPHINE. NO ANSWER. WILL WAIT FOR CALL.
[2019-04-24 10:22] VITALS: BP 151/75
--- NOTE | 2019-04-24 10:45 | NUR ---
PER DR FALCON SPOKE WITH FAMILY AND FAMILY STATED PT WAS AT [facility] BEFORE AND WOULD LIKE TO GO BACK THERE CALLED [facility] [phone] SPOKE WITH MONA DIRECTOR OF ADMISSION. PER MONA ACCEPTED PATIENT AND CAN GO TO ROOM [address] UNDER [address] MALONEY # TO GIVE REPORT THE SAME ABOVE AND TRANSPORT ARRANGED BY MONA DIRECTOR OF TAX SERVICES TIME 1200 NOON
--- NOTE | 2019-04-24 15:02 | NUR ---
TRANSPORTATION HERE TO [facility] PR[facility]UCER PT. PT STABLE. PT DNR BUT NO POLST IN CHART. NOTIFIED ABOUT NO POLST IN CHART. PT A/O X1, CANNOT SIGN. NO FAMILY MEMBER HERE TO SIGN. TRANSPORTATION TEAM SAID THEY WILL HAVE TO TREAT HER FULL CODE WHEN EN ROUTE TO [facility]. PT AWARE THAT SHE GOING TO [facility]. EDUCATED PT ON IV ABX TREATMENT AND S/E.
== END 2019-04-24 15:00 | DRG 177 ==
LOC: MED 10:29 → MTU 15:14
PROVIDERS: ADMIT General Practice; ATTEND General Practice
DX: J69.0 Pneumonitis due to inhalation of food and vomit (principal); E43 Unspecified severe protein-calorie malnutrition; G93.41 Metabolic encephalopathy; N39.0 Urinary tract infection, site not specified; J91.8 Pleural effusion in other conditions classified elsewhere; E11.22 Type 2 diabetes mellitus with diabetic chronic kidney disease; E83.39 Other disorders of phosphorus metabolism; E83.42 Hypomagnesemia; D64.9 Anemia, unspecified; M81.0 Age-related osteoporosis without current pathological fracture; F41.9 Anxiety disorder, unspecified; H54.7 Unspecified visual loss; N18.9 Chronic kidney disease, unspecified; I12.9 Hypertensive chronic kidney disease with stage 1 through stage 4 chronic kidney disease, or unspecified chronic kidney disease; K59.09 Other constipation; K21.9 Gastro-esophageal reflux disease without esophagitis; Z79.899 Other long term (current) drug therapy; Z87.891 Personal history of nicotine dependence; Z85.72 Personal history of non-Hodgkin lymphomas; Z68.22 Body mass index [BMI] 22.0-22.9, adult
CPT/HCPCS: 36415; 36600; 71045; 71250; 76604; 80048; 80053; 81001; 82140; 82150; 82272; 82607; 82728; 82746; 82948; 83036; 83540; 83605; 83690; 83735; 84100; 84134; 84439; 84443; 84484; 85025; 85045; 85610; 85730; 87040; 87081; 87086; 93005; 94640; 96360; 97161-GP; 99285; J0295; J0694; J0696; J1644; J1815; J2060; J3475; J3490; J7030; J7060; J7620; Q0092